=== PATIENT | female | born 1950 | race Caucasian/White ===

== ENCOUNTER 2025-01-03 18:02 | Inpatient (IN) | payer MEDICARE, SELFPAY ==
--- NOTE | ~2025-01-03 | CT_ITS ---
EXAMINATION: CT chest, abdomen and pelvis without contrast: DATE: 01/03/2025. INDICATION: Leukocytosis. Abnormal chest x-ray with opacity of left lower lung field. TECHNIQUE: CT was performed without contrast and multiplanar reconstruction were obtained. Radiation dose 844 MG Y C.M. COMPARISON: Chest x-ray dated 01/03/2025. FINDINGS: Cardiomegaly is noted with postoperative changes of aortic endograft. No focal abnormalities of the right lung. Consolidation of the left lower lobe is noted with volume loss. Major left lower bronchi are patent. Air bronchogram is present through consolidation. Minimal left pleural effusion. No pericardial effusion. Below the diaphragm, no focal lesions of the liver and spleen. Gallbladder shows no acute findings. Pancreas is atrophic. Multiple bilateral nonobstructing renal calculi. No ureteric calculi are obstruction are seen. No bladder calculus. Significant multilevel degenerative disc changes of lumbar spine. IMPRESSION: 1. Limited noncontrast CT, not optimal to evaluate neoplasms, vascular structures and solid viscera. 2. Significant consolidation and loss of volume of left lower lobe. Air bronchogram is present through the consolidation of left lower lobe. Findings are most likely due to persistent pneumonia of left lower lobe. Clinical and lab follow-up are needed along with chest x-ray follow-up to ensure complete resolution of the pneumonia. 3. Bilateral nonobstructing renal calculi. 4. Degenerative disc changes of thoracolumbar discs. Reviewed, dictated and finalized at location T. GER SOUND IMPRESSION: 1. Limited noncontrast CT, not optimal to evaluate neoplasms, vascular structur es and solid viscera. 2. Significant consolidation and loss of volume of left lower lobe. Air broncho gram is present through the consolidation of left lower lobe. Findings are most likely due to persistent pneumonia of left lower lobe. Clinical and lab follow -up are needed along with chest x-ray follow-up to ensure complete resolution o f the pneumonia. 3. Bilateral nonobstructing renal calculi. 4. Degenerative disc changes of thoracolumbar discs.
--- NOTE | ~2025-01-03 | XR_ITS ---
EXAMINATION: XR chest 2V DATE: 01/03/2025 18:59 INDICATION: Fever and cough TECHNIQUE: Frontal and lateral views of the chest were obtained. COMPARISON: None. FINDINGS: Heart size is mildly enlarged. Atherosclerotic aorta. Postoperative changes of aortic endograft. Right lung is clear. Significant consolidation and partial atelectasis of left lower lobe. Possible pneumonia. Aspiration or obstruction by tumor cannot be ruled out. IMPRESSION: 1. Cardiomegaly, atherosclerotic aorta and aortic graft placement. 2. Significant consolidation and loss of volume due to atelectasis of left lower lobe. Possible changes of pneumonia. However, obstruction by tumor or foreign body aspiration not ruled out. Radiographic follow-up is needed and if necessary CT follow-up can be obtained. Reviewed, dictated and finalized at location T. S SAFETY ENGINEER IMPRESSION: 1. Cardiomegaly, atherosclerotic aorta and aortic graft placement. 2. Significant consolidation and loss of volume due to atelectasis of left lowe r lobe. Possible changes of pneumonia. However, obstruction by tumor or foreign body aspiration not ruled out. Radiographic follow-up is needed and if necessa ry CT follow-up can be obtained.
[2025-01-03 18:07] VITALS: BP 140/58; PULSE 108; RESP 16; TEMP 36.5; O2SAT 96
--- NOTE | 2025-01-03 18:31 | ED.NAVMDI ---
HPI - Nausea/Vomiting/Diarrhea General Chief complaint: Nausea/Vomiting/Diarrhea Stated complaint: hypotension Time Seen by Provider: 01/03/25 18:31 Focused HPI: This is a 74 year old female that presents to the ER for nausea and vomiting. Ongoing since yesterday. Reports associated fever, cough, fatigue. GENERAL: Ill-appearing, well-nourished, and in no acute distress. HEAD: Normocephalic, atraumatic. CHEST: Clear to auscultation. ?No respiratory distress. HEART: Regular rate and rhythm.? NEURO: ?Alert and oriented x3. Patient screened in triage and initial orders placed.? ?Additional care and disposition to be based upon?diagnostic testing and treatment. Related Data Home Medications ?Medication ?Instructions ?Recorded ?Confirmed ?Last Taken ?Type albuterol sulfate 90 mcg/actuation 1 puff inhalation Q6H PRN 01/04/25 01/04/25 01/01/25 History aerosol inhaler shortness of breath or wheezing allopurinol 100 mg tablet 100 mg PO DAILY 01/04/25 01/04/25 01/01/25 History benzonatate 200 mg capsule 200 mg PO TID PRN cough 01/04/25 01/04/25 01/01/25 History clopidogrel 75 mg tablet 75 mg PO DAILY 01/04/25 01/04/25 01/01/25 History dronedarone 400 mg tablet (Multaq) 400 mg PO BID 01/04/25 01/04/25 01/01/25 History fluticasone furoate 100 1 inh inhalation Q24H 01/04/25 01/04/25 01/01/25 History mcg/actuation blister powder for inhalation (Arnuity Ellipta) hydrocodone 5 mg-acetaminophen 325 1 tablet PO BID PRN pain 01/04/25 01/04/25 01/02/25 History mg tablet meloxicam 7.5 mg tablet 7.5 mg PO DAILY PRN Pain 01/04/25 01/04/25 Unknown History unrelieved by hydrocodone metoprolol succinate 25 mg 25 mg PO DAILY 01/04/25 01/04/25 01/01/25 History tablet,extended release 24 hr oxybutynin chloride 5 mg tablet 5 mg PO HS 01/04/25 01/04/25 01/01/25 History oxybutynin chloride 5 mg tablet 10 mg PO DAILY 01/04/25 01/04/25 01/01/25 History Allergies Allergy/AdvReac Type Severity Reaction Status Date / Time ciprofloxacin Allergy Mild Hives Verified 01/04/25 02:03 levofloxacin (From Levaquin) Allergy Mild Hives Verified 01/04/25 02:03 Penicillins Allergy Mild Hives Verified 01/04/25 02:03 meperidine (From Demerol) AdvReac Mild Nausea Verified 01/04/25 02:03 Review of Systems Review of Systems: All systems reviewed & are unremarkable except as noted in HPI and below PMFSH Past Medical History Medical History (Updated 01/04/25 @ 07:45 by Kenzie Shetty APRN) Atrial fibrillation Family History Family History (Updated 01/04/25 @ 02:06 by Bhavin Chen RN) Father Lung cancer Mother Narcolepsy Social History Social History Smoking status: Never smoker Second hand tobacco smoke exposure: Yes Alcohol intake: never Substance use type: marijuana Last use: 12/10/24 Lack of Transportation: No Lack of Food: Never True Current Housing: I Have Housing Concerned About Future Housing: No Difficulty Paying Gas/Electric Bills: No Difficulty Paying for Meds: No Currently Unemployed: No Education: Bachelor's Degree Difficulty w/ Childcare or Family Care: No Spiritual care concerns: No Course Vital Signs Vital signs: Vital Signs Temperature 97.7 F 01/03/25 18:07 Pulse Rate 108 H 01/03/25 18:07 Respiratory Rate 16 01/03/25 18:07 Blood Pressure 140/58 L 01/03/25 18:07 Pulse Oximetry 96 01/03/25 18:07 Oxygen Delivery Room Air 01/03/25 18:07 Temperature 97.7 F 01/05/25 14:00 Pulse Rate 94 01/05/25 17:11 Respiratory Rate 17 01/05/25 14:00 Blood Pressure 132/83 01/05/25 14:00 Pulse Oximetry 95 01/05/25 14:00 Oxygen Delivery Room Air 01/05/25 10:42 MDM - Nausea/Vomiting/Diarrhea Lab Data 01/05/25 04:18 01/05/25 04:18 Labs: Lab Results 1101/03/25 01/03/25 Range/Units 19:04 19:08 22:13 WBC 15.8 H (4.5-10.0) K/mm3 RBC 4.64 (4.2-5.4) M/mm3 Hgb 14.7 (12.0-15.0) g/dL Hct 43.6 (37.0-47.0) % MCV 94.0 (80-100) fl MCH 31.7 (26-34) pg MCHC 33.7 (32-36) g/dl RDW 15.4 H (11.5-14.5) % Plt Count 190 (150-375) k/mm3 MPV 11.9 H (7.4-10.4) fl Immature Gran % (Auto) 1.2 H (0-0.5) % Neut % (Auto) 87.8 H (45.5-73.1) % Lymph % (Auto) 5.0 L (18.3-44.2) % [place] % (Auto) 4.0 (2.6-8.5) % Eos % (Auto) 1.3 (0-4.4) % Baso % (Auto) 0.7 (0.2-1.2) % Lymph # (Auto) 0.79 L (0.9-3.2) K/mm3 [place] # (Auto) 0.6 (0.1-0.6) K/mm3 Eos # (Auto) 0.2 (0-0.3) K/mm3 Baso # (Auto) 0.1 (0.0-0.1) K/mm3 Abs Immat Gran (auto) 0.19 H (0.00-0.031) K/mm3 Absolute Neuts (auto) 13.9 H (1.3-6.7) K/mm3 Absolute Nucleated RBC 0.000 (0.0-0.012) K/mm3 Band Neutrophils % Not Reportable Nucleated RBC % 0.0 (0.0-0.2) % Platelet Estimate Adequate (Adequate) Anisocytosis 1+ Ovalocytes 1+ Schistocytes None seen Sodium 131 L (137-145) mmol/L Potassium 3.1 L (3.4-5.0) mmol/L Chloride 91 L (98-107) mmol/L Carbon Dioxide 27 (22-30) mmol/L Anion Gap 13 H (4-12) mmol/L BUN 40 H (7-17) mg/dL Creatinine 1.98 H (0.7-1.0) mg/dL Estim Creat Clear Calc Not Reportable Estimated GFR 25 L (59 - ) Glucose 159 H (65-110) mg/dL Lactic Acid 3.0 H (0.7-2.0) mmol/L Calcium 9.3 (8.4-10.2) mg/dL Total Bilirubin 1.8 H (0.2-1.3) mg/dL AST 34 (14-36) U/L ALT 22 (6-35) U/L Alkaline Phosphatase 80 (38-126) U/L Total Protein 7.6 (6.3-8.2) g/dL Albumin 4.3 (3.5-5.1) g/dL Lipase 20 L (23-300) U/L Urine Color Dark yellow (Yellow) Urine Appearance Turbid H (Clear) Urine pH 5.5 (5.0-9.0) Ur Specific [place] 1.023 (1.001-1.035) Urine Protein 2+ H (Negative) mg/dL Urine Glucose (UA) Negative (Negative) mg/dL Urine Ketones Trace H (Negative) mg/dL Ur Blood (Man) 3+ H (Negative) Urine Nitrate Negative (Negative) Urine Bilirubin 2+ H (Negative) Urine Urobilinogen 1.0 (<2.0) mg/dL Leukocyte Esterase Rfl 2+ H (Negative) ADRIANE/UL Urine RBC 11-20 H (0-2) /hpf Urine WBC 6-10 H (0-3) /hpf Ur Squamous Epith Cells Few (Few) /hpf Urine Bacteria 1+ (None) /hpf Urine Mucus Few H /lpf Influenza A (RT-PCR) Negative (Negative) Influenza B (RT-PCR) Negative (Negative) RSV (RT-PCR) Negative (Negative) SARS-CoV-2 RNA (RT-PCR) Negative (Negative) 01/04/25 Range/Units 01:17 WBC (4.5-10.0) K/mm3 RBC (4.2-5.4) M/mm3 Hgb (12.0-15.0) g/dL Hct (37.0-47.0) % MCV (80-100) fl MCH (26-34) pg MCHC (32-36) g/dl RDW (11.5-14.5) % Plt Count (150-375) k/mm3 MPV (7.4-10.4) fl Immature Gran % (Auto) (0-0.5) % Neut % (Auto) (45.5-73.1) % Lymph % (Auto) (18.3-44.2) % [place] % (Auto) (2.6-8.5) % Eos % (Auto) (0-4.4) % Baso % (Auto) (0.2-1.2) % Lymph # (Auto) (0.9-3.2) K/mm3 [place] # (Auto) (0.1-0.6) K/mm3 Eos # (Auto) (0-0.3) K/mm3 Baso # (Auto) (0.0-0.1) K/mm3 Abs Immat Gran (auto) (0.00-0.031) K/mm3 Absolute Neuts (auto) (1.3-6.7) K/mm3 Absolute Nucleated RBC (0.0-0.012) K/mm3 Band Neutrophils % Nucleated RBC % (0.0-0.2) % Platelet Estimate (Adequate) Anisocytosis Ovalocytes Schistocytes Sodium (137-145) mmol/L Potassium (3.4-5.0) mmol/L Chloride (98-107) mmol/L Carbon Dioxide (22-30) mmol/L Anion Gap (4-12) mmol/L BUN (7-17) mg/dL Creatinine (0.7-1.0) mg/dL Estim Creat Clear Calc Estimated GFR (59 - ) Glucose (65-110) mg/dL Lactic Acid 1.9 (0.7-2.0) mmol/L Calcium (8.4-10.2) mg/dL Total Bilirubin (0.2-1.3) mg/dL AST (14-36) U/L ALT (6-35) U/L Alkaline Phosphatase (38-126) U/L Total Protein (6.3-8.2) g/dL Albumin (3.5-5.1) g/dL Lipase (23-300) U/L Urine Color (Yellow) Urine Appearance (Clear) Urine pH (5.0-9.0) Ur Specific [place] (1.001-1.035) Urine Protein (Negative) mg/dL Urine Glucose (UA) (Negative) mg/dL Urine Ketones (Negative) mg/dL Ur Blood (Man) (Negative) Urine Nitrate (Negative) Urine Bilirubin (Negative) Urine Urobilinogen (<2.0) mg/dL Leukocyte Esterase Rfl (Negative) ADRIANE/UL Urine RBC (0-2) /hpf Urine WBC (0-3) /hpf Ur Squamous Epith Cells (Few) /hpf Urine Bacteria (None) /hpf Urine Mucus /lpf Influenza A (RT-PCR) (Negative) Influenza B (RT-PCR) (Negative) RSV (RT-PCR) (Negative) SARS-CoV-2 RNA (RT-PCR) (Negative) Discharge Plan Discharge Clinical Impression: Community acquired pneumonia, Sepsis, Dehydration, Hypokalemia Patient Disposition: Still a Patient Condition: Stable
[2025-01-03 19:23] LABS: Hematocrit 43.6 % (37.0-47.0); Hemoglobin 14.7 g/dL (12.0-15.0); Immature Granulocyte Percent A 1.2 % (0-0.5); Lymphocytes Absolute Auto 0.79 K/mm3 (0.9-3.2); Mean Corpuscular HGB Conc 33.7 g/dl (32-36); Mean Corpuscular Hemoglobin 31.7 pg (26-34); Mean Corpuscular Volume 94.0 fl (80-100); Nucleated Red Blood Cells Absolute Auto 0.000 K/mm3 (0.0-0.012); Nucleated Red Blood Cells Perc 0.0 % (0.0-0.2); Platelet Count Result 190 k/mm3 (150-375); Red Blood Count 4.64 M/mm3 (4.2-5.4); White Blood Count 15.8 K/mm3 (4.5-10.0)
[2025-01-03 19:43] LABS: Alanine Aminotransferase 22 U/L (6-35); Albumin Level 4.3 g/dL (3.5-5.1); Alkaline Phosphatase 80 U/L (38-126); Anion Gap 13 mmol/L (4-12); Aspartate Amino Transferase 34 U/L (14-36); Bilirubin,Total 1.8 mg/dL (0.2-1.3); Blood Urea Nitrogen 40 mg/dL (7-17); Calcium 9.3 mg/dL (8.4-10.2); Carbon Dioxide 27 mmol/L (22-30); Chloride 91 mmol/L (98-107); Estimated Glomerular Filt Rate 25; Glucose 159 mg/dL (65-110); Lipase 20 U/L (23-300); Potassium 3.1 mmol/L (3.4-5.0); Sodium 131 mmol/L (137-145); Total Protein 7.6 g/dL (6.3-8.2)
[2025-01-03 19:46] LABS: Anisocytosis 1+; Ovalocytes 1+; Schistocytes None Seen
[2025-01-03 19:58] LABS: Influenza A QL RT-PCR Negative (Negative); Influenza B QL RT-PCR Negative (Negative); RSV RNA, RT-PCR Negative (Negative); SARS-CoV-2 RNA PCR Negative (Negative)
[2025-01-03 20:11] LABS: Add Urine Microscopic? YES; Appearance Urine Turbid (Clear); Glucose Urine UA Negative (Negative); Leukocyte Esterase Ur 2+ LEU/UL (Negative); Nitrate Urine Negative (Negative); Specific Grav Ur 1.023 (1.001-1.035)
[2025-01-03 20:31] VITALS: BP 117/70; PULSE 78; RESP 16; O2SAT 93
--- NOTE | 2025-01-03 20:56 | ED.WEAKNESS ---
HPI - Weakness General Chief complaint: Nausea/Vomiting/Diarrhea Stated complaint: hypotension Time Seen by Provider: 01/03/25 18:31 History of Present Illness HPI Narrative: 74-year-old female with history of hypertension, chronic lung disease, aortic valve replacement, aortic graft replacement. Patient presents to the emergency department today from urgent care as she was feeling generalized weakness, nonproductive cough, short of breath and nauseous. She is visiting family members from out of town. She gets her care in [place]. Patient was feeling too weak and barely able to ambulate secondary to malaise, weakness and feeling fever and chills throughout the weekend. Reported some nausea and vomiting but denies any abdominal discomfort or chest pain. Was otherwise in her normal state of health. States her fever broke before she arrived to the ER. Denies any urinary complaints. No headache or vision changes. No falls. 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 Related Data Home Medications ?Medication ?Instructions ?Recorded ?Confirmed ?Last Taken ?Type albuterol sulfate 90 mcg/actuation 1 puff inhalation Q6H PRN 01/04/25 01/04/25 01/01/25 History aerosol inhaler shortness of breath or wheezing allopurinol 100 mg tablet 100 mg PO DAILY 01/04/25 01/04/25 01/01/25 History benzonatate 200 mg capsule 200 mg PO TID PRN cough 01/04/25 01/04/25 01/01/25 History clopidogrel 75 mg tablet 75 mg PO DAILY 01/04/25 01/04/25 01/01/25 History dronedarone 400 mg tablet (Multaq) 400 mg PO BID 01/04/25 01/04/25 01/01/25 History fluticasone furoate 100 1 inh inhalation Q24H 01/04/25 01/04/25 01/01/25 History mcg/actuation blister powder for inhalation (Arnuity Ellipta) hydrocodone 5 mg-acetaminophen 325 1 tablet PO BID PRN pain 01/04/25 01/04/25 01/02/25 History mg tablet meloxicam 7.5 mg tablet 7.5 mg PO DAILY PRN Pain 01/04/25 01/04/25 Unknown History unrelieved by hydrocodone metoprolol succinate 25 mg 25 mg PO DAILY 01/04/25 01/04/25 01/01/25 History tablet,extended release 24 hr oxybutynin chloride 5 mg tablet 5 mg PO HS 01/04/25 01/04/25 01/01/25 History oxybutynin chloride 5 mg tablet 10 mg PO DAILY 01/04/25 01/04/25 01/01/25 History Allergies Allergy/AdvReac Type Severity Reaction Status Date / Time ciprofloxacin Allergy Mild Hives Verified 01/04/25 02:03 levofloxacin (From Levaquin) Allergy Mild Hives Verified 01/04/25 02:03 Penicillins Allergy Mild Hives Verified 01/04/25 02:03 meperidine (From Demerol) AdvReac Mild Nausea Verified 01/04/25 02:03 Review of Systems Review of Systems: As reviewed above in HPI All systems reviewed & are unremarkable except as noted in HPI and below PMFSH Family History Family History (Updated 01/04/25 @ 02:06 by Bhavin Chen RN) Father Lung cancer Mother Narcolepsy Social History Social History Smoking status: Never smoker Second hand tobacco smoke exposure: Yes Alcohol intake: never Substance use type: marijuana Last use: 12/10/24 Lack of Transportation: No Lack of Food: Never True Current Housing: I Have Housing Concerned About Future Housing: No Difficulty Paying Gas/Electric Bills: No Difficulty Paying for Meds: No Currently Unemployed: No Education: Bachelor's Degree Difficulty w/ Childcare or Family Care: No Spiritual care concerns: No Exam Narrative: GENERAL: Ill-appearing but not any acute physical or respiratory distress. HEAD: [Normocephalic, atraumatic.] EYES: [PERRLA and EOMI.] ENT: Nares clear, no rhinorrhea or epistaxis. Mucous membranes moist. NECK: Supple. CHEST: Asymmetric coarse breath sounds worse on the left side, no wheezing or obvious rales. HEART: [Regular rate and rhythm]. No murmur heard. [Normal peripheral pulses.] ABDOMEN: [Soft, nondistended], [nontender], [No rigidity or guarding] EXTREMITIES: Normal range of motion. [No edema.] SKIN: Warm, dry, no rash. NEURO: [No focal deficits]. Alert and oriented [x3.] PSYCH: [Normal mood and affect.] Course Vital Signs Vital signs: Vital Signs Temperature 36.5 C 01/03/25 18:07 Pulse Rate 108 H 01/03/25 18:07 Respiratory Rate 16 01/03/25 18:07 Blood Pressure 140/58 L 01/03/25 18:07 Pulse Oximetry 96 01/03/25 18:07 Oxygen Delivery Room Air 01/03/25 18:07 Temperature 36.6 C 01/04/25 01:15 Pulse Rate 78 01/04/25 01:15 Respiratory Rate 18 01/04/25 01:15 Blood Pressure 135/59 L 01/04/25 01:15 Pulse Oximetry 95 01/04/25 01:15 Oxygen Delivery Room Air 01/03/25 18:07 MDM - Weakness MDM Narrative Medical decision making narrative: 74-year-old female with history of hypertension, chronic lung disease, aortic valve replacement, aortic graft replacement. Patient presents to the emergency department today from urgent care as she was feeling generalized weakness, nonproductive cough, short of breath and nauseous. She is visiting family members from out of town. She gets her care in [place]. Patient was feeling too weak and barely able to ambulate secondary to malaise, weakness and feeling fever and chills throughout the weekend. Reported some nausea and vomiting but denies any abdominal discomfort or chest pain. Was otherwise in her normal state of health. States her fever broke before she arrived to the ER. Denies any urinary complaints. No headache or vision changes. No falls. 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 Patient coughing throughout the examination but not productive. She has asymmetric coarse breath sounds worse on the left side. She is tachycardic with a pulse of 108. No fever here but she states her fever broke before she arrived after going to urgent care. She tested negative for COVID, flu, RSV twice this weekend. Blood pressure mildly elevated but not significant. No fever or hypoxemia right now. No tachypnea. Suspicion for pneumonia versus upper respiratory infection versus viral syndrome. Laboratory studies EKG, chest x-ray ordered. Chest x-ray shows potential pneumonia versus obstructive process such as a mass. She does have an elevated white count combined with her tachycardia and subjective fever raises suspicion for SIRS criteria and sepsis. Lactic acid and blood cultures ordered. She is decreased kidney function with unknown baseline. Provided fluid boluses she does appear slightly dry. CT scans of the chest abdomen pelvis without contrast obtained for further evaluation at this time. Lab showed leukocytosis of 15.8, lactic acid 3.0. Pulse of 108. Hypokalemia with chronic kidney disease versus CIARAN. Patient given fluids and potassium replenishment. 30 cc/kg fluid bolus initiated. Already received antibiotics. CT scan without contrast secondary to kidney issues was limited but does show considerations for persistent pneumonia left lower lobe. Nonobstructing renal calculi. Spoke to the hospitalist Dr. Boucher who accepted the patient to a telemetry monitored bed at this time for continued care. Spoke to the family and patient were comfortable with admission. Repeat vital signs improved after fluids and antibiotics. Medical Records Attestation: I reviewed the patient's medical records. Lab Data Attestation: I reviewed the patient's lab results. 01/03/25 19:04 01/03/25 19:04 Labs: Lab Results 01/03/25 01/03/25 01/03/25 Range/Units 19:04 19:08 22:13 WBC 15.8 H (4.5-10.0) K/mm3 RBC 4.64 (4.2-5.4) M/mm3 Hgb 14.7 (12.0-15.0) g/dL Hct 43.6 (37.0-47.0) % MCV 94.0 (80-100) fl MCH 31.7 (26-34) pg MCHC 33.7 (32-36) g/dl RDW 15.4 H (11.5-14.5) % Plt Count 190 (150-375) k/mm3 MPV 11.9 H (7.4-10.4) fl Immature Gran % (Auto) 1.2 H (0-0.5) % Neut % (Auto) 87.8 H (45.5-73.1) % Lymph % (Auto) 5.0 L (18.3-44.2) % [place] % (Auto) 4.0 (2.6-8.5) % Eos % (Auto) 1.3 (0-4.4) % Baso % (Auto) 0.7 (0.2-1.2) % Lymph # (Auto) 0.79 L (0.9-3.2) K/mm3 [place] # (Auto) 0.6 (0.1-0.6) K/mm3 Eos # (Auto) 0.2 (0-0.3) K/mm3 Baso # (Auto) 0.1 (0.0-0.1) K/mm3 Abs Immat Gran (auto) 0.19 H (0.00-0.031) K/mm3 Absolute Neuts (auto) 13.9 H (1.3-6.7) K/mm3 Absolute Nucleated RBC 0.000 (0.0-0.012) K/mm3 Band Neutrophils % Not Reportable Nucleated RBC % 0.0 (0.0-0.2) % Platelet Estimate Adequate (Adequate) Anisocytosis 1+ Ovalocytes 1+ Schistocytes None seen Sodium 131 L (137-145) mmol/L Potassium 3.1 L (3.4-5.0) mmol/L Chloride 91 L (98-107) mmol/L Carbon Dioxide 27 (22-30) mmol/L Anion Gap 13 H (4-12) mmol/L BUN 40 H (7-17) mg/dL Creatinine 1.98 H (0.7-1.0) mg/dL Estim Creat Clear Calc Not Reportable Estimated GFR 25 L (59 - ) Glucose 159 H (65-110) mg/dL Lactic Acid 3.0 H (0.7-2.0) mmol/L Calcium 9.3 (8.4-10.2) mg/dL Total Bilirubin 1.8 H (0.2-1.3) mg/dL AST 34 (14-36) U/L ALT 22 (6-35) U/L Alkaline Phosphatase 80 (38-126) U/L Total Protein 7.6 (6.3-8.2) g/dL Albumin 4.3 (3.5-5.1) g/dL Lipase 20 L (23-300) U/L Urine Color Dark yellow (Yellow) Urine Appearance Turbid H (Clear) Urine pH 5.5 (5.0-9.0) Ur Specific [place] 1.023 (1.001-1.035) Urine Protein 2+ H (Negative) mg/dL Urine Glucose (UA) Negative (Negative) mg/dL Urine Ketones Trace H (Negative) mg/dL Ur Blood (Man) 3+ H (Negative) Urine Nitrate Negative (Negative) Urine Bilirubin 2+ H (Negative) Urine Urobilinogen 1.0 (<2.0) mg/dL Leukocyte Esterase Rfl 2+ H (Negative) ADRIANE/UL Urine RBC 11-20 H (0-2) /hpf Urine WBC 6-10 H (0-3) /hpf Ur Squamous Epith Cells Few (Few) /hpf Urine Bacteria 1+ (None) /hpf Urine Mucus Few H /lpf Influenza A (RT-PCR) Negative (Negative) Influenza B (RT-PCR) Negative (Negative) RSV (RT-PCR) Negative (Negative) SARS-CoV-2 RNA (RT-PCR) Negative (Negative) Imaging Data Attestation: I personally reviewed and interpreted this imaging study as follows: My impression: Impressions Chest X-Ray 01/03/25 19:01 IMPRESSION: 1. Cardiomegaly, atherosclerotic aorta and aortic graft placement. 2. Significant consolidation and loss of volume due to atelectasis of left lower lobe. Possible changes of pneumonia. However, obstruction by tumor or foreign body aspiration not ruled out. Radiographic follow-up is needed and if necessary CT follow-up can be obtained. Chest/Abdomen/Pelvis CT 01/03/25 21:22 IMPRESSION: 1. Limited noncontrast CT, not optimal to evaluate neoplasms, vascular structures and solid viscera. 2. Significant consolidation and loss of volume of left lower lobe. Air bronchogram is present through the consolidation of left lower lobe. Findings are most likely due to persistent pneumonia of left lower lobe. Clinical and lab follow-up are needed along with chest x-ray follow-up to ensure complete resolution of the pneumonia. 3. Bilateral nonobstructing renal calculi. 4. Degenerative disc changes of thoracolumbar discs. Critical Care Time Critical Care Time Critical Care Time: Yes Total Critical Care Time: 35 Discharge Plan Discharge Clinical Impression: Community acquired pneumonia, Sepsis, Dehydration, Hypokalemia Patient Disposition: Still a Patient Condition: Stable
--- NOTE | 2025-01-03 21:00 | ECG_ITS ---
Test Date: 2025-01-03 21:40:14 Measurements Intervals [place] Rate: 101 P: 0 MN: 0 QRS: 50 QRSD: 115 T: -10 QT: 370 QTc: 480 Interpretive Statements ATRIAL FIBRILLATION WITH RAPID VENTRICULAR RESPONSE NONSPECIFIC T-WAVE ABNORMALITY ABNORMAL RHYTHM ECG No previous ECG available for comparison Electronically Signed On 01-04-2025 07:34:14 VIRTUAL CUSTOMER ASSISTANT by Gian Vidal M.D.
[2025-01-03 21:20] VITALS: BP 126/91; PULSE 70; RESP 14; O2SAT 96
[2025-01-03] MEDS: AZITHROMYCIN IV 500 MG in SODIUM CHLORIDE 0.9% IV 250 ML IVPB (23:08)
[2025-01-03] MEDS: LACTATED RINGERS 1,000 ML 999 ML IV CONT (23:08)
[2025-01-04] VITALS (15 sets, daily range): BP systolic 112–151; BP diastolic 55–93; PULSE 70–114; RESP 16–20; TEMP 36.4–36.8; O2SAT 92–98; BMI 33.3
[2025-01-04] MEDS: HYDROcodone/acetaminophen (*CRX) 5-325 MG TABLET 1 TAB PO ×2 (00:03→14:33)
[2025-01-04] MEDS: cefTRIAXone 2 GM in SODIUM CHLORIDE 0.9% IV 100 ML 200 ML IVPB (00:11)
--- NOTE | 2025-01-04 00:14 | WPCEDHO ---
ED Hand Off Checklist All vitals saved: yes IV Site doc yesumented: All med administrations documented: no. Pharmacy is fixing some issues with the medications and ER tube station is down and meds are slow to come to ER Triage Note Triage Note PT TO ED FOR EVAL OF N/V/D SINCE 01/03/25 18:07 THIS WEEKEND. NO OTHER FAMILY MEMBERS ILL. DENIES ANY ABD PAIN . FEELS CHILLED. WAS AT [facility] AND [facility] NEGATIVE Allergies ciprofloxacin Allergy (Mild, Verified 01/03/25 18:05) Hives levofloxacin (From Levaquin) Allergy (Mild, Verified 01/03/25 18:05) Hives Penicillins Allergy (Mild, Verified 01/03/25 18:05) Hives meperidine (From Demerol) Adverse Reaction (Mild, Verified 01/03/25 18:05) Nausea Administered/Completed Medications Discontinued Medications Hydrocodone Bitart/Acetaminophen (Hydrocodone/Acetaminophen (*Crx) 5-325 Mg Tablet) 1 tab PO ONCE STA Stop: 01/03/25 23:22 Last Admin: 01/04/25 00:03 Dose: 1 tab Documented By: KAY Lactated Ringer's (Lr - Lactated Ringers Iv) 1,000 mls @ 999 mls/hr IV CONT .Q1H1M STA Stop: 01/03/25 21:39 Last Infusion: 01/04/25 00:10 Dose: Infused Documented By: Admin: 01/03/25 23:08 Dose: 999 mls/hr Documented By: KAY Ceftriaxone Sodium 2 gm/ (Sodium Chloride) 100 mls @ 200 mls/hr IVPB ONCE STA Stop: 01/03/25 21:08 Last Admin: 01/04/25 00:11 Dose: 200 mls/hr Documented By: KAY Azithromycin 500 mg/ Sodium (Chloride) 250 mls @ 250 mls/hr IVPB ONCE ONE Stop: 01/03/25 21:38 Last Infusion: 01/04/25 00:10 Dose: Infused Documented By: Admin: 01/03/25 23:08 Dose: 250 mls/hr Documented By: KAY Ondansetron HCl (Ondansetron Inj 4 Mg/2 Ml Vial) 4 mg IV PUSH ONCE STA Stop: 01/03/25 18:35 Last Admin: 01/03/25 23:01 Dose: Not Given Documented By: KAY Non-Admin Reason: Patient Refuses Interventions/Assessments IV / Saline Lock, Insert Start: 01/03/25 18:32 Freq: STAT Status: Active Protocol: Document 01/03/25 20:12 SAK (Rec: 01/03/25 20:12 SAK [id number]) IV Assessment Peripheral Access Left Antecubital IV Catheter Access Initiated IV Insertion Date 01/03/25 IV Insertion Time 20:12 Catheter Gauge 20 IV Insertion 1 Attempts Ultrasound Used for No Placement IV Site Assessment WNL IV Care and Access Locked Maintenance PA: Gastrointestinal Assessment Start: 01/03/25 18:06 Freq: Status: Active Protocol: Document 01/03/25 20:13 SAK (Rec: 01/03/25 20:14 SAK [id number]) GI Assessment Gastrointestinal Nausea Symptoms Description Soft,Non-Tender All Quadrants Bowel Sounds Active Pattern Normal Nausea/Vomiting Assessment Nausea Frequency Intermittent Emesis Frequency None Last Vital Signs Temperature 97.7 F 01/03/25 18:07 Pulse Rate 90 01/04/25 00:01 Respiratory Rate 16 01/04/25 00:01 Pulse Oximetry 93 01/04/25 00:01 Blood Pressure 120/93 H 01/04/25 00:01 Blood Pressure Mean 102 01/04/25 00:01 Blood Pressure Position Supine 01/04/25 00:01 Oxygen Delivery Room Air 01/03/25 18:07 Weight 77 kg 01/03/25 18:07 Last Result - Abnormals Only WBC 15.8 K/mm3 (4.5-10.0) H 01/03/25 19:04 RDW 15.4 % (11.5-14.5) H 01/03/25 19:04 MPV 11.9 fl (7.4-10.4) H 01/03/25 19:04 Immature Gran % (Auto) 1.2 % (0-0.5) H 01/03/25 19:04 Neut % (Auto) 87.8 % (45.5-73.1) H 01/03/25 19:04 Lymph % (Auto) 5.0 % (18.3-44.2) L 01/03/25 19:04 Lymph # (Auto) 0.79 K/mm3 (0.9-3.2) L 01/03/25 19:04 Abs Immat Gran (auto) 0.19 K/mm3 (0.00-0.031) H 01/03/25 19:04 Absolute Neuts (auto) 13.9 K/mm3 (1.3-6.7) H 01/03/25 19:04 Sodium 131 mmol/L (137-145) L 01/03/25 19:04 Potassium 3.1 mmol/L (3.4-5.0) L 01/03/25 19:04 Chloride 91 mmol/L (98-107) L 01/03/25 19:04 Anion Gap 13 mmol/L (4-12) H 01/03/25 19:04 BUN 40 mg/dL (7-17) H 01/03/25 19:04 Creatinine 1.98 mg/dL (0.7-1.0) H 01/03/25 19:04 Estimated GFR 25 (59-) L 01/03/25 19:04 Glucose 159 mg/dL (65-110) H 01/03/25 19:04 Lactic Acid 3.0 mmol/L (0.7-2.0) H 01/03/25 22:13 Total Bilirubin 1.8 mg/dL (0.2-1.3) H 01/03/25 19:04 Lipase 20 U/L (23-300) L 01/03/25 19:04 Urine Appearance Turbid (Clear) H 01/03/25 19:08 Urine Protein 2+ mg/dL (Negative) H 01/03/25 19:08 Urine Ketones Trace mg/dL (Negative) H 01/03/25 19:08 Ur Blood (Man) 3+ (Negative) H 01/03/25 19:08 Urine Bilirubin 2+ (Negative) H 01/03/25 19:08 Leukocyte Esterase Rfl 2+ ADRIANE/UL (Negative) H 01/03/25 19:08 Urine RBC 11-20 /hpf (0-2) H 01/03/25 19:08 Urine WBC 6-10 /hpf (0-3) H 01/03/25 19:08 Urine Mucus Few /lpf H 01/03/25 19:08 Most Recent Suicide Severity Rating Suicide Severity Rating NO RISK INDICATED 01/03/25 18:07
[2025-01-04] MEDS: POTASSIUM CHLORIDE 20 MEQ ER TABLET 40 MEQ PO (01:15)
[2025-01-04] MEDS: LACTATED RINGERS 1,000 ML 999 ML IV CONT (01:15)
[2025-01-04] MEDS: LACTATED RINGERS 400 ML 999 ML IV CONT (01:16)
[2025-01-04] MEDS: SODIUM CHLORIDE 0.9% IV 1,000 ML 75 ML IV CONT ×2 (05:26→17:23)
--- NOTE | 2025-01-04 07:35 | PM.IMHP ---
H&P: HPI History of Present Illness Date/Time: 01/04/25 1214 Chief Complaint: Cough, N/V, weakness, fever Narrative: Pt lying in bed with S.O. at the bedside. Pt c/o continued lower back pain (chronic), weakness, and brown tinged productive cough that started Thursday. Pt with recent 11 hour car ride, she [place]. Pt states that she feels better than she did yesterday but would like to start her home pain meds for her back pain (has gotten multiple injections to the L-spine, last being in 10/2024). Denies any other issues. Review of Systems Review of Systems: All systems reviewed & are unremarkable except as noted in HPI and below PMFSH Past Medical History Medical History (Updated 01/04/25 @ 07:45 by Kenzie Shetty APRN) Atrial fibrillation Family History Family History (Updated 01/04/25 @ 02:06 by Bhavin Chen RN) Father Lung cancer Mother Narcolepsy Social History Social History Smoking status: Never smoker Second hand tobacco smoke exposure: Yes Alcohol intake: never Substance use type: marijuana Last use: 12/10/24 Lack of Transportation: No Lack of Food: Never True Current Housing: I Have Housing Concerned About Future Housing: No Difficulty Paying Gas/Electric Bills: No Difficulty Paying for Meds: No Currently Unemployed: No Education: Bachelor's Degree Difficulty w/ Childcare or Family Care: No Spiritual care concerns: No Meds Home Medications and Allergies Home Medications ?Medication ?Instructions ?Recorded ?Confirmed ?Type albuterol sulfate 90 mcg/actuation 1 puff inhalation Q6H PRN 01/04/25 01/04/25 History aerosol inhaler shortness of breath or wheezing allopurinol 100 mg tablet 100 mg PO DAILY 01/04/25 01/04/25 History benzonatate 200 mg capsule 200 mg PO TID PRN cough 01/04/25 01/04/25 History clopidogrel 75 mg tablet 75 mg PO DAILY 01/04/25 01/04/25 History dronedarone 400 mg tablet (Multaq) 400 mg PO BID 01/04/25 01/04/25 History fluticasone furoate 100 1 inh inhalation Q24H 01/04/25 01/04/25 History mcg/actuation blister powder for inhalation (Arnuity Ellipta) hydrocodone 5 mg-acetaminophen 325 1 tablet PO BID PRN pain 01/04/25 01/04/25 History mg tablet meloxicam 7.5 mg tablet 7.5 mg PO DAILY PRN Pain 01/04/25 01/04/25 History unrelieved by hydrocodone metoprolol succinate 25 mg 25 mg PO DAILY 01/04/25 01/04/25 History tablet,extended release 24 hr oxybutynin chloride 5 mg tablet 5 mg PO HS 01/04/25 01/04/25 History oxybutynin chloride 5 mg tablet 10 mg PO DAILY 01/04/25 01/04/25 History Allergies Allergy/AdvReac Type Severity Reaction Status Date / Time ciprofloxacin Allergy Mild Hives Verified 01/04/25 02:03 levofloxacin (From Levaquin) Allergy Mild Hives Verified 01/04/25 02:03 Penicillins Allergy Mild Hives Verified 01/04/25 02:03 meperidine (From Demerol) AdvReac Mild Nausea Verified 01/04/25 02:03 Vital Signs Vital Signs - 24 hr 01/03/25 18:07 01/03/25 20:31 01/03/25 21:20 Temperature 97.7 F Pulse Rate 108 H 78 70 Respiratory Rate 16 16 14 Blood Pressure 140/58 L 117/70 126/91 H Pulse Oximetry 96 93 96 Oxygen Delivery Room Air 01/04/25 00:01 01/04/25 01:00 01/04/25 01:15 Temperature 98.3 F 97.9 F Pulse Rate 90 106 H 78 Respiratory Rate 16 17 18 Blood Pressure 120/93 H 126/67 135/59 L Pulse Oximetry 93 95 95 Oxygen Delivery 01/04/25 02:23 01/04/25 03:34 01/04/25 04:00 Temperature 97.6 F Pulse Rate 95 103 H Respiratory Rate 20 Blood Pressure 112/55 L Pulse Oximetry 92 Oxygen Delivery Room Air Exam Narrative: Elderly Const: General: no acute distress and uncomfortable HENMT: Face/Nose/Sinus: Normal nares present Other: tacky mucous membranes Eyes: General: appearance normal, both eyes and all related structures Sclera: sclerae normal Pupils: Equal, round and reactive pupils present Neck: Neck: supple Carotids: no bruits Resp: Effort & Inspection: normal respiratory effort Auscultation: crackles on the left in the lower lung munoz, wheezes expiratory wheezes and left lower and diminished lung sounds (throughout) Cardio: Rate: regular rate Rhythm: regular rhythm GI: Inspection: non-distended GI Palp: No Tenderness to palpation present (GI) Auscultation: normal bowel sounds Back/Spine/Pelvis: Other: TTP lumbar spine, paraspinal bilaterally Skin: General skin exam: normal color and no rashes or lesions noted Neuro: Speech: normal speech Motor exam (neuro): 5/5 motor strength present throughout and Normal motor muscle tone present throughout Sensory Exam: normal sensation Extrem: General: normal to inspection and normal exam except as noted Psych: Mental Status: mental status grossly normal Affect: normal affect H&P: Results Labs Labs: Short CBC 01/03/25 Range/Units 19:04 WBC 15.8 H (4.5-10.0) K/mm3 Hgb 14.7 (12.0-15.0) g/dL Hct 43.6 (37.0-47.0) % Plt Count 190 (150-375) k/mm3 BMP 01/03/25 19:04 Sodium 131 L Potassium 3.1 L Chloride 91 L Carbon Dioxide 27 BUN 40 H Creatinine 1.98 H Glucose 159 H Calcium 9.3 Liver Function 01/03/25 Range/Units 19:04 Total Bilirubin 1.8 H (0.2-1.3) mg/dL AST 34 (14-36) U/L ALT 22 (6-35) U/L Alkaline Phosphatase 80 (38-126) U/L Albumin 4.3 (3.5-5.1) g/dL Urine 01/03/25 Range/Units 19:08 Urine Color Dark yellow (Yellow) Urine Appearance Turbid H (Clear) Urine pH 5.5 (5.0-9.0) Ur Specific [place] 1.023 (1.001-1.035) Urine Protein 2+ H (Negative) mg/dL Urine Glucose (UA) Negative (Negative) mg/dL Assessment and Plan Assessment and plan (1) Community acquired pneumonia: Code(s): J18.9 - Pneumonia, unspecified organism Status: Acute Assessment and Plan: Per CXR & CT WBC elevated Abx started in ED: Maria Elena Ordered sputum culture today, pending (2) Sepsis: Code(s): A41.9 - Sepsis, unspecified organism Status: Acute Assessment and Plan: SIRS vs sepsis WBC downtrending VSS Pending UC and BC (3) Dehydration: Code(s): E86.0 - Dehydration Status: Acute Assessment and Plan: IVF bolus initiated in ED -Continue NS 75ml/hr (4) Hypokalemia: Code(s): E87.6 - Hypokalemia Status: Acute Assessment and Plan: 3.1 in the ED, repleted there 3.7 with recheck 01/04, continue with daily labs (5) Renal calculi: Code(s): N20.0 - Calculus of kidney Status: Acute Assessment and Plan: Per CT, chronic, states that she has had a total of 8 in the past and she can tell when present -Denies CVA pain or urinary sx -Home med oxybutynin continued (6) Atrial fibrillation: Code(s): I48.91 - Unspecified atrial fibrillation Status: Acute Assessment and Plan: Tele, EKG in ED 480 QTc -Denies CP, SOB, palpitations -Continue home meds: Plavix, dronedarone Plan Continue with course of abx IV abx for sepsis/UTI Quality VTE Prophylaxis VTE prophylaxis: mechanical ordered and pharmacologic ordered Hospitalist [facility] Advance Care Plan I have confirmed that the patient's Advanced Care Plan is present, code status is documented, or surrogate decision maker is listed in patient medical record.: Yes The patient's Advanced Care plan is not present because:: Patient doesn't want to name surrogate or provider advance care plan
[2025-01-04] MEDS: CLOPIDOGREL BISULFATE 75 MG TABLET PO (08:34)
[2025-01-04] MEDS: DRONEDARONE HCL 400 MG TABLET PO ×2 (08:34→17:21)
[2025-01-04] MEDS: METOPROLOL SUCCINATE EXT REL 25 MG TABCR PO (08:35)
[2025-01-04 10:09] LABS: Hematocrit 35.9 % (37.0-47.0); Hemoglobin 12.0 g/dL (12.0-15.0); Mean Corpuscular HGB Conc 33.4 g/dl (32-36); Mean Corpuscular Hemoglobin 31.7 pg (26-34); Mean Corpuscular Volume 95.0 fl (80-100); Platelet Count Result 136 k/mm3 (150-375); Red Blood Count 3.78 M/mm3 (4.2-5.4); White Blood Count 13.7 K/mm3 (4.5-10.0)
[2025-01-04 10:33] LABS: Alanine Aminotransferase 16 U/L (6-35); Albumin Level 3.2 g/dL (3.5-5.1); Alkaline Phosphatase 74 U/L (38-126); Anion Gap 5 mmol/L (4-12); Aspartate Amino Transferase 25 U/L (14-36); Bilirubin,Total 0.9 mg/dL (0.2-1.3); Blood Urea Nitrogen 42 mg/dL (7-17); Calcium 8.9 mg/dL (8.4-10.2); Carbon Dioxide 28 mmol/L (22-30); Chloride 99 mmol/L (98-107); Estimated Glomerular Filt Rate 39; Glucose 104 mg/dL (65-110); Potassium 3.7 mmol/L (3.4-5.0); Sodium 132 mmol/L (137-145); Total Protein 5.8 g/dL (6.3-8.2)
[2025-01-04] MEDS: cefTRIAXone 1 GM in SODIUM CHLORIDE 0.9% IV 50 ML 100 ML IVPB (21:16)
[2025-01-04] MEDS: AZITHROMYCIN IV 500 MG in SODIUM CHLORIDE 0.9% IV 250 ML IVPB (21:52)
[2025-01-04] MEDS: BENZONATATE 100 MG CAPSULE 200 MG PO (22:41)
[2025-01-05] VITALS (13 sets, daily range): BP systolic 132–152; BP diastolic 79–87; PULSE 77–106; RESP 16–18; TEMP 36.5–37.4; O2SAT 95–98
[2025-01-05 04:35] LABS: Hematocrit 33.6 % (37.0-47.0); Hemoglobin 11.0 g/dL (12.0-15.0); Immature Granulocyte Percent A 0.5 % (0-0.5); Lymphocytes Absolute Auto 0.90 K/mm3 (0.9-3.2); Mean Corpuscular HGB Conc 32.7 g/dl (32-36); Mean Corpuscular Hemoglobin 32.1 pg (26-34); Mean Corpuscular Volume 98.0 fl (80-100); Nucleated Red Blood Cells Absolute Auto 0.000 K/mm3 (0.0-0.012); Nucleated Red Blood Cells Perc 0.0 % (0.0-0.2); Platelet Count Result 126 k/mm3 (150-375); Red Blood Count 3.43 M/mm3 (4.2-5.4); White Blood Count 12.0 K/mm3 (4.5-10.0)
[2025-01-05 05:06] LABS: Anisocytosis 1+; Burr Cells 1+; Schistocytes None Seen
--- NOTE | 2025-01-05 07:26 | PM.IMPN ---
Progress Note: A&P Assessment and Plan (1) Community acquired pneumonia: Code(s): J18.9 - Pneumonia, unspecified organism Status: Acute Assessment and Plan: Per CXR & CT WBC elevated, continuing to downtrend Abx started in ED: Shavonne & Rayne Sputum culture pending Reports today that she feels as if she has phlegm stuck in her chest that she cannot get out. D/C Tessalon Perles and started guaifenesin, will continue to monitor (2) Sepsis: Code(s): A41.9 - Sepsis, unspecified organism Status: Acute Assessment and Plan: SIRS vs sepsis WBC downtrending VSS Pending UC and BC (3) Dehydration: Code(s): E86.0 - Dehydration Status: Acute Assessment and Plan: IVF bolus initiated in ED -Continue NS 75ml/hr -Reports oral fluid intake WDL for her, moist mucus membranes (4) Hypokalemia: Code(s): E87.6 - Hypokalemia Status: Acute Assessment and Plan: 3.1 in the ED, repleted there 3.7 with recheck 01/04, continue with daily labs 3.3 with recheck 01/05. will replete via oral again. pt with decreased appetite. continue daily labs (5) Renal calculi: Code(s): N20.0 - Calculus of kidney Status: Acute Assessment and Plan: Per CT, chronic, states that she has had a total of 8 in the past and she can tell when present -Denies CVA pain or urinary sx -Home med oxybutynin continued (6) Atrial fibrillation: Code(s): I48.91 - Unspecified atrial fibrillation Status: Acute Assessment and Plan: Tele, EKG in ED 480 QTc -Denies CP, SOB, palpitations -Continue home meds: Plavix, dronedarone Plan Continue with course of abx IV abx for sepsis/UTI/PNA Time Spent With Patient Time: 35 Subjective Date/time seen: 01/05/25 1044 Interval history: Pt lying in bed in no distress upon entering her room. Pt states that she feels better than yesterday, but still feels SOB, has a productive cough, weakness, and no appetite (although reports fluid intake has been WDL for her). Pt states that she feels as if she has phlegm in her chest that she cannot seem to get up, will start guaifenesin today with d/c Edmar [place]. Denies CP or any other sx. Pt chronic pain is better managed today, she states that it has been flaring due to the hospital bed. Review of Systems Review of Systems: All systems reviewed & are unremarkable except as noted in HPI and below Exam Narrative: Elderly Const: General: no acute distress and uncomfortable HENMT: Face/Nose/Sinus: Normal nares present Mouth: Yes moist mucous membranes Eyes: General: appearance normal, both eyes and all related structures Sclera: sclerae normal Pupils: Equal, round and reactive pupils present Neck: Neck: supple Carotids: no bruits Resp: Effort & Inspection: normal respiratory effort Auscultation: diminished lung sounds (throughout) Cardio: Rate: regular rate Rhythm: abnormal rhythm irregularly irregular Other: TELE afib 89bpm GI: Inspection: non-distended Auscultation: normal bowel sounds Skin: General skin exam: normal color and no rashes or lesions noted Neuro: Cranial nerves: Yes Equal, round and reactive pupils present Speech: normal speech Motor exam (neuro): Normal motor muscle tone present throughout Sensory Exam: normal sensation Extrem: General: normal to inspection and normal exam except as noted Psych: Mental Status: mental status grossly normal Affect: normal affect Objective Data Vital Signs Vital Signs: Vital Signs - 24 hr 01/04/25 08:00 01/04/25 08:32 01/04/25 08:34 Temperature Pulse Rate 104 H 100 106 H Respiratory Rate Blood Pressure 151/85 H Pulse Oximetry 96 Oxygen Delivery 01/04/25 08:35 01/04/25 08:35 01/04/25 12:00 Temperature Pulse Rate 106 H 108 H Respiratory Rate Blood Pressure Pulse Oximetry Oxygen Delivery Room Air 01/04/25 14:00 01/04/25 16:00 01/04/25 17:21 Temperature 97.8 F Pulse Rate 70 112 H 114 H Respiratory Rate 18 Blood Pressure 148/74 H Pulse Oximetry 98 Oxygen Delivery 01/04/25 20:00 01/04/25 20:00 01/04/25 20:55 Temperature 97.8 F Pulse Rate 90 87 Respiratory Rate 16 Blood Pressure 131/75 Pulse Oximetry 95 Oxygen Delivery Room Air 01/05/25 00:00 01/05/25 04:00 01/05/25 04:51 Temperature 97.7 F Pulse Rate 106 H 80 89 Respiratory Rate 18 Blood Pressure 152/87 H Pulse Oximetry 98 Oxygen Delivery Intake/Output Intake/Output: Intake & Output 01/02/25 01/03/25 01/04/25 01/05/25 23:59 23:59 23:59 23:59 Intake Total 5521.6 Output Total 400 200 Balance 5121.6 -200 Meds/Results Medications: Active Medications Generic Name Dose Route Start Last Admin Trade Name Freq PRN Reason Stop Dose Admin Acetaminophen 650 mg 01/03/25 23:28 Acetaminophen 325 Mg Tablet PO Q4H PRN Mild Pain (1-3) or Fever Hydrocodone Bitart/Acetaminophen 1 tab 01/04/25 12:24 01/04/25 14:33 Hydrocodone/Acetaminophen (*Crx) 5-325 Mg Tablet PO 1 tab BID PRN Administration Pain Albuterol 1 puff 01/04/25 07:44 Albuterol Sulfate (*Sp) Aerosol 1 Puff INHALATION Q6H PRN Shortness Of Breath Or Wheezing Allopurinol 100 mg 01/04/25 09:00 01/04/25 08:35 Allopurinol 100 Mg Tablet PO 100 mg DAILY MISBAH Administration Benzonatate 200 mg 01/04/25 07:54 01/04/25 22:41 Benzonatate 100 Mg Capsule PO 200 mg TID PRN Administration cough Clopidogrel Bisulfate 75 mg 01/04/25 09:00 01/04/25 08:34 Clopidogrel Bisulfate 75 Mg Tablet PO 75 mg DAILY MISBAH Administration Dronedarone 400 mg 01/04/25 08:00 01/04/25 17:21 Dronedarone Hcl 400 Mg Tablet PO 400 mg BIDWM MISBAH Administration Enoxaparin Sodium 40 mg 01/05/25 09:00 Enoxaparin 40 Mg/0.4 Ml Syringe SUB-Q DAILY MISBAH Fluticasone Propionate 2 puff 01/04/25 08:00 01/04/25 20:44 Fluticasone Prop 110 Mcg Inhaler 12 Gm (*Sp) INHALATION Not Given Q12HRT MISBAH Sodium Chloride 1,000 mls @ 75 mls/hr 01/04/25 00:50 01/04/25 21:00 Normal Saline Iv IV CONT 75 mls/hr .[id number] MISBAH Infusion Ceftriaxone Sodium 1 gm/ 50 mls @ 100 mls/hr 01/04/25 21:00 01/04/25 21:46 Sodium Chloride IVPB 01/09/25 21:29 Infused Q24H MISBAH Infusion Azithromycin 500 mg/ Sodium 250 mls @ 250 mls/hr 01/04/25 21:00 01/04/25 22:52 Chloride IVPB 01/07/25 21:59 Infused Q24H MISBAH Infusion Metoprolol Succinate 25 mg 01/04/25 09:00 01/04/25 08:35 Metoprolol Succinate Ext Rel 25 Mg Tabcr PO 25 mg DAILY MISBAH Administration Oxybutynin Chloride 10 mg 01/04/25 09:00 01/04/25 08:35 Oxybutynin Chloride 5 Mg Tablet PO 10 mg DAILY MISBAH Administration Oxybutynin Chloride 5 mg 01/04/25 21:00 01/04/25 21:21 Oxybutynin Chloride 5 Mg Tablet PO 5 mg HS MISBAH Administration Trimethobenzamide HCl 200 mg 01/04/25 07:54 Trimethobenzamide Hcl 200 Mg/2 Ml Vial IM Q6H PRN Nausea And Vomiting Radiology Results: ITS Impressions Chest X-Ray 01/03/25 19:01 IMPRESSION: 1. Cardiomegaly, atherosclerotic aorta and aortic graft placement. 2. Significant consolidation and loss of volume due to atelectasis of left lower lobe. Possible changes of pneumonia. However, obstruction by tumor or foreign body aspiration not ruled out. Radiographic follow-up is needed and if necessary CT follow-up can be obtained. Chest/Abdomen/Pelvis CT 01/03/25 21:22 IMPRESSION: 1. Limited noncontrast CT, not optimal to evaluate neoplasms, vascular structures and solid viscera. 2. Significant consolidation and loss of volume of left lower lobe. Air bronchogram is present through the consolidation of left lower lobe. Findings are most likely due to persistent pneumonia of left lower lobe. Clinical and lab follow-up are needed along with chest x-ray follow-up to ensure complete resolution of the pneumonia. 3. Bilateral nonobstructing renal calculi. 4. Degenerative disc changes of thoracolumbar discs. Labs Labs: Laboratory Results - last 24 hr 01/04/25 01/05/25 10:01 04:18 WBC 13.7 H 12.0 H RBC 3.78 L 3.43 L Hgb 12.0 11.0 L Hct 35.9 L 33.6 L MCV 95.0 98.0 MCH 31.7 32.1 MCHC 33.4 32.7 RDW 15.1 H 15.4 H Plt Count 136 L 126 L MPV 12.2 H 12.5 H Immature Gran % (Auto) 0.5 Neut % (Auto) 86.0 H Lymph % (Auto) 7.5 L [place] % (Auto) 5.6 Eos % (Auto) 0.1 Baso % (Auto) 0.3 Lymph # (Auto) 0.90 [place] # (Auto) 0.7 H Eos # (Auto) 0.0 Baso # (Auto) 0.0 Abs Immat Gran (auto) 0.06 H Absolute Neuts (auto) 10.3 H Absolute Nucleated RBC 0.000 Band Neutrophils % Not Reportable Nucleated RBC % 0.0 Platelet Estimate Decreased Anisocytosis 1+ [place] Cells 1+ Schistocytes None seen Sodium 132 L Potassium 3.7 Chloride 99 Carbon Dioxide 28 Anion Gap 5 BUN 42 H Creatinine 1.31 H Estim Creat Clear Calc Not Reportable Estimated GFR 39 L Glucose 104 Calcium 8.9 Total Bilirubin 0.9 AST 25 ALT 16 Alkaline Phosphatase 74 Total Protein 5.8 L Albumin 3.2 L Quality VTE Prophylaxis VTE prophylaxis: mechanical ordered and pharmacologic ordered
[2025-01-05 07:49] LABS: Alanine Aminotransferase 11 U/L (6-35); Albumin Level 2.9 g/dL (3.5-5.1); Alkaline Phosphatase 68 U/L (38-126); Anion Gap 3 mmol/L (4-12); Aspartate Amino Transferase 25 U/L (14-36); Bilirubin,Total 0.6 mg/dL (0.2-1.3); Blood Urea Nitrogen 38 mg/dL (7-17); Calcium 8.2 mg/dL (8.4-10.2); Carbon Dioxide 27 mmol/L (22-30); Chloride 101 mmol/L (98-107); Estimated Glomerular Filt Rate 54; Glucose 92 mg/dL (65-110); Potassium 3.3 mmol/L (3.4-5.0); Sodium 131 mmol/L (137-145); Total Protein 5.4 g/dL (6.3-8.2)
[2025-01-05] MEDS: DRONEDARONE HCL 400 MG TABLET PO ×2 (09:27→17:11)
[2025-01-05] MEDS: CLOPIDOGREL BISULFATE 75 MG TABLET PO (09:27)
[2025-01-05] MEDS: ENOXAPARIN 40 MG/0.4 ML SYRINGE SUB-Q (09:27)
[2025-01-05] MEDS: METOPROLOL SUCCINATE EXT REL 25 MG TABCR PO (09:27)
[2025-01-05] MEDS: SODIUM CHLORIDE 0.9% IV 1,000 ML 75 ML IV CONT ×2 (09:29→23:00)
[2025-01-05] MEDS: FLUTICASONE PROP 110 MCG INHALER 12 GM (*SP) 2 PUFF INHALATION ×2 (10:41→20:50)
[2025-01-05] MEDS: guaiFENesin 12 HR 600 MG TABCR 1200 MG PO ×2 (12:36→21:12)
[2025-01-05] MEDS: POTASSIUM CHLORIDE 20 MEQ PACKET (FOR LIQUID) 40 MEQ PO (12:38)
[2025-01-05] MEDS: cefTRIAXone 1 GM in SODIUM CHLORIDE 0.9% IV 50 ML 100 ML IVPB (21:15)
[2025-01-05] MEDS: AZITHROMYCIN IV 500 MG in SODIUM CHLORIDE 0.9% IV 250 ML IVPB (21:56)
[2025-01-06] VITALS (11 sets, daily range): BP systolic 131–137; BP diastolic 73–85; PULSE 71–86; RESP 16–18; TEMP 36.3–36.8; O2SAT 94–97
--- NOTE | 2025-01-06 | ECHO_ITS ---
Patient Info Name: Fouzia Obrien Age: 74 years : 1950 Gender: Female Ht: 59 in Wt: 165 lbs BSA: 1.80 m2 HR: 86 bpm BP: 137 / 73 mmHg Heart Rhythm: Atrial Fibrillation Technical Quality: Good Exam Date: 01/06/2025 2:59 PM Patient Status: I Admit Date: 01/04/2025 Exam Type: CA echo doppler color flow Complete two-dimensional, color flow and Doppler transthoracic echocardiogram is performed. Staff Referring Physician: Michael Dinh Certified Cytotechnologist: Tru Justin III Attending Provider: Shaye Boucher DO Summary 1. Complete two-dimensional, color flow and Doppler transthoracic echocardiogram is performed. 2. Left ventricular hypertrophy with adequate systolic function and no regional wall motion abnormality. 3. Severely dilated left atrium. 4. Moderate mitral regurgitation. 5. Aortic valve appearance is typical of a TAVR valve. Device is functioning normally. No information was given to me regarding the valve details. 6. Atrial fibrillation. Left Ventricle Left ventricular chamber dimension is normal. Left ventricular systolic function is normal, estimated at 50-55. The left ventricular diastolic function is indeterminate. Right Ventricle Right ventricular chamber dimension is normal. Left Atria Left atrial chamber dimension is severely enlarged. Right Atria Right atrial chamber dimension is normal. Aortic Valve There is no regurgitation of the TAVR aortic valve. Pulmonic Valve The pulmonic valve is normal. Mitral Valve The mitral valve has normal leaflets. There is moderate mitral valve regurgitation. Tricuspid Valve The tricuspid valve leaflets are normal. Pericardium/Pleural The pericardium appears normal. Aorta The aortic root size at the sinus of Valsalva is normal. Left Ventricular Outflow Tract Name Value Normal LVOT 2D LVOT Diameter 2.0 cm LVOT Doppler LVOT Peak Velocity 129 cm/s LVOT Peak Gradient 7 mmHg LVOT Mean Gradient 4 mmHg LVOT VTI 32 cm LVOT VTI/AV VTI Ratio 0.9 LVOT Stroke Volume 97 ml LVOT CO 6.9 l/min LVOT CI 3.9 l/min/m2 Pulmonic Valve Name Value Normal PV Doppler PV Peak Velocity 161 cm/s PV Peak Gradient 10 mmHg PV Mean Gradient 1 mmHg PV Regurgitation Doppler TN Peak End Diastolic Velocity 99 cm/s Mitral Valve Name Value Normal MV Doppler MV Peak Gradient 11 mmHg MV Mean Gradient 2 mmHg MV Area (Cont Eq VTI) 2.2 cm2 MV Regurgitation Doppler MR Peak Gradient 152 mmHg MV Diastolic Function MV E Peak Velocity 142 cm/s MV Decel Time (PW) 190 ms MV Annular TDI MV E/e' (Septal) 12.0 MV E/e' (Lateral) 10.7 MV E/e' (Average) 11.3 Tricuspid Valve Name Value Normal TV Regurgitation Doppler TR Peak Velocity 278 cm/s TR Peak Gradient 23 mmHg Estimated PAP/RSVP RA Pressure 10 mmHg <=5 PA Systolic Pressure 41 mmHg <36 RV Systolic Pressure 41 mmHg <36 TV Annular TDI TV Lateral Mar s' Velocity 10.0 cm/s >=9.5 Aortic Valve Name Value Normal AV Doppler AV Peak Velocity 231 cm/s AV Peak Gradient 20 mmHg AV Mean Gradient 8 mmHg AV VTI 36 cm AV Area (Cont Eq VTI) 2.7 cm2 >=3.0 AV Area (Cont Eq Marko) 1.7 cm2 AV DI (Marko) 0.56 AV Regurgitation 2D LVOT Area 3.0 cm2 Ventricles Name Value Normal LV Dimensions 2D/MM IVS Diastolic Thickness (2D) 1.4 cm 0.6-1.0 LVID Diastole (2D) 3.7 cm 3.8-5.2 LVIW Diastolic Thickness (2D) 1.2 cm 0.6-0.9 LVID Systole (2D) 2.6 cm 2.2-3.5 LVOT Diameter 2.0 cm LV Mass (2D Cubed) 163.65 g 67.00-162.00 LV Mass Index (2D Cubed) 91 g/m2 43-95 Relative Wall Thickness (2D) 0.66 <=0.42 LV Fractional Shortening/Ejection Fraction 2D/MM LV Fractional Shortening (2D) 31 % 27-45 LV EF (2D Teichholz) 59 % LV Diastolic Volume (4C MOD) 83 ml LV EF (4C MOD) 58 % LV Diastolic Volume (2C MOD) 58 ml LV EF (2C MOD) 60 % LV Diastolic Volume (BP MOD) 72 ml 46-106 LV Diastolic Volume Index (BP MOD) 40 ml/m2 29-61 LV Systolic Volume (BP MOD) 29 ml 14-42 LV Systolic Volume Index (BP MOD) 16 ml/m2 8-24 LV EF (BP MOD) 60 % 54-74 LV Diastolic Length (4C) 7.1 cm LV Systolic Length (4C) 5.9 cm LV Stroke Volume (4C MOD) 48 ml Atria Name Value Normal LA Dimensions LA Volume (4C A-L) 137 ml LA Volume (BP A-L) 127 ml RA Dimensions RA Systolic Major [place] Length (4C) 5.8 cm 2.2-2.8 RA Area (4C) 21.8 cm2 <=18.0 Report Signatures
--- NOTE | 2025-01-06 00:21 | PC.NURSE ---
Megan Barrera notified pt having persistent coughing fits that are constantly waking her up. Santos Jeter were D/C to encourage coughing, however pt is becoming exhausted from extremely frequent coughing episodes and will likely not sleep overnight w/o some type of suppressant. One time phenergen/codeine ordered to allow for quality sleep overnight.
[2025-01-06] MEDS: PROMETHAZINE/CODEINE (*CRX) 5 ML SYRUP PO (00:52)
[2025-01-06 05:09] LABS: Hematocrit 31.7 % (37.0-47.0); Hemoglobin 10.3 g/dL (12.0-15.0); Immature Granulocyte Percent A 0.8 % (0-0.5); Lymphocytes Absolute Auto 1.20 K/mm3 (0.9-3.2); Mean Corpuscular HGB Conc 32.5 g/dl (32-36); Mean Corpuscular Hemoglobin 31.8 pg (26-34); Mean Corpuscular Volume 97.8 fl (80-100); Nucleated Red Blood Cells Absolute Auto 0.000 K/mm3 (0.0-0.012); Nucleated Red Blood Cells Perc 0.0 % (0.0-0.2); Platelet Count Result 125 k/mm3 (150-375); Red Blood Count 3.24 M/mm3 (4.2-5.4); White Blood Count 8.5 K/mm3 (4.5-10.0)
[2025-01-06 05:28] LABS: Alanine Aminotransferase 13 U/L (6-35); Albumin Level 2.8 g/dL (3.5-5.1); Alkaline Phosphatase 70 U/L (38-126); Anion Gap 4 mmol/L (4-12); Aspartate Amino Transferase 26 U/L (14-36); Bilirubin,Total 0.4 mg/dL (0.2-1.3); Blood Urea Nitrogen 25 mg/dL (7-17); Calcium 8.1 mg/dL (8.4-10.2); Carbon Dioxide 25 mmol/L (22-30); Chloride 105 mmol/L (98-107); Estimated Glomerular Filt Rate > 60; Glucose 82 mg/dL (65-110); Potassium 3.3 mmol/L (3.4-5.0); Sodium 134 mmol/L (137-145); Total Protein 5.5 g/dL (6.3-8.2)
[2025-01-06] MEDS: CLOPIDOGREL BISULFATE 75 MG TABLET PO (08:55)
[2025-01-06] MEDS: guaiFENesin 12 HR 600 MG TABCR 1200 MG PO ×2 (08:55→20:17)
[2025-01-06] MEDS: DRONEDARONE HCL 400 MG TABLET PO ×2 (08:55→17:14)
[2025-01-06] MEDS: POTASSIUM CHLORIDE 20 MEQ ER TABLET 40 MEQ PO (08:56)
[2025-01-06] MEDS: METOPROLOL SUCCINATE EXT REL 25 MG TABCR PO (08:56)
[2025-01-06] MEDS: ENOXAPARIN 40 MG/0.4 ML SYRINGE SUB-Q (09:01)
--- NOTE | 2025-01-06 09:18 | PM.IMPN ---
Progress Note: A&P Assessment and Plan (1) Community acquired pneumonia: Code(s): J18.9 - Pneumonia, unspecified organism Status: Acute Assessment and Plan: Per CXR & CT WBC elevated, continuing to downtrend, normalized today Abx started in ED: Azithro & Rocephin Sputum culture WDL Continue guaifenesin due to still present productive phlegm cough, will continue to monitor (2) Sepsis: Code(s): A41.9 - Sepsis, unspecified organism Status: Acute Assessment and Plan: Sepsis WBC downtrending, now normalized VSS BC prelim Gram+ cocci x1 bottle --Continue Rocephin. Echo, MRSA swab, and repeat BC pending, await results with sensitivities UC with mixed urogenital radames, WDL (3) Dehydration: Code(s): E86.0 - Dehydration Status: Acute Assessment and Plan: IVF bolus initiated in ED -Continue NS 75ml/hr -Reports oral fluid intake WDL for her, moist mucus membranes, appetite still poor (4) Hypokalemia: Code(s): E87.6 - Hypokalemia Status: Acute Assessment and Plan: 3.1 in the ED, repleted there 3.7 with recheck 01/04, continue with daily labs 3.3 with recheck 01/05. will replete via oral again. pt with decreased appetite. continue daily labs 3.3 with recheck 01/06, pt refused liquid K last night. Liquid ordered due to interaction with oxybutynin. -Held oxybutynin today and ordered K 40meq tab instead one time dose & 20meq daily starting tomorrow until appetite back to normal, encouraged oral intake. Continue daily labs. (5) Renal calculi: Code(s): N20.0 - Calculus of kidney Status: Acute Assessment and Plan: Per CT, chronic, states that she has had a total of 8 in the past and she can tell when present -Denies CVA pain or urinary sx (6) Atrial fibrillation: Code(s): I48.91 - Unspecified atrial fibrillation Status: Acute Assessment and Plan: Tele, EKG in ED 480 QTc -Denies CP, SOB, palpitations -Continue home meds: Plavix, dronedarone Plan Continue with course of abx IV abx for sepsis/PNA/bacteremia Subjective Date/time seen: 01/06/25 0855 Interval history: Patient lying in bed with no acute distress upon my entry. Patient states that she is breathing better, but is still having phlegm that is being coughed up. Overall better breathing status. Patient states that she has been coughing throughout the night, and is tired and continues to be weak today. Plan for rest today with potassium repletion. She had refused potassium drink last night and had a potassium of 3.3 this morning. will give oral K while holding her oxybutynin. Review of Systems Review of Systems: All systems reviewed & are unremarkable except as noted in HPI and below Exam Narrative: Elderly Const: General: no acute distress and uncomfortable HENMT: Face/Nose/Sinus: Normal nares present Mouth: Yes moist mucous membranes Eyes: General: appearance normal, both eyes and all related structures Sclera: sclerae normal Pupils: Equal, round and reactive pupils present Neck: Neck: supple Carotids: no bruits Resp: Effort & Inspection: normal respiratory effort Auscultation: diminished lung sounds on the left in the lower lung munoz Cardio: Rate: regular rate Rhythm: regular rhythm and abnormal rhythm irregularly irregular Other: TELE afib 89bpm GI: Inspection: non-distended Auscultation: normal bowel sounds Back/Spine/Pelvis: Other: TTP lumbar spine, paraspinal bilaterally Skin: General skin exam: normal color and no rashes or lesions noted Neuro: Cranial nerves: Yes Equal, round and reactive pupils present Speech: normal speech Motor exam (neuro): Normal motor muscle tone present throughout Sensory Exam: normal sensation Extrem: General: normal to inspection and normal exam except as noted Psych: Mental Status: mental status grossly normal Affect: normal affect Objective Data Vital Signs Vital Signs: Vital Signs - 24 hr 01/05/25 09:27 01/05/25 09:27 01/05/25 09:30 Temperature Pulse Rate 104 H 104 H Respiratory Rate Blood Pressure Pulse Oximetry Oxygen Delivery Room Air Fraction of Inspired Oxygen 01/05/25 10:42 01/05/25 12:00 01/05/25 14:00 Temperature 97.7 F Pulse Rate 95 77 Respiratory Rate 17 Blood Pressure 132/83 Pulse Oximetry 96 95 Oxygen Delivery Room Air Fraction of Inspired Oxygen 01/05/25 16:00 01/05/25 17:11 01/05/25 19:46 Temperature 99.4 F Pulse Rate 97 94 97 Respiratory Rate 18 Blood Pressure 134/79 Pulse Oximetry 96 Oxygen Delivery Fraction of Inspired Oxygen 01/05/25 20:00 01/05/25 20:00 01/05/25 20:51 Temperature Pulse Rate 82 85 Respiratory Rate 16 Blood Pressure Pulse Oximetry 97 Oxygen Delivery Room Air Room Air Fraction of Inspired Oxygen 21 01/05/25 20:51 01/06/25 00:00 01/06/25 04:00 Temperature Pulse Rate 85 75 73 Respiratory Rate 16 Blood Pressure Pulse Oximetry Oxygen Delivery Fraction of Inspired Oxygen 01/06/25 04:38 01/06/25 08:55 01/06/25 08:56 Temperature 98.2 F Pulse Rate 71 86 86 Respiratory Rate 18 Blood Pressure 137/73 Pulse Oximetry 94 Oxygen Delivery Fraction of Inspired Oxygen Intake/Output Intake/Output: Intake & Output 01/03/25 01/04/25 01/05/25 01/06/25 23:59 23:59 23:59 23:59 Intake Total 5521.6 2818.7 530 Output Total 400 800 Balance 5121.6 2018.7 530 Meds/Results Medications: Active Medications Generic Name Dose Route Start Last Admin Trade Name Freq PRN Reason Stop Dose Admin Acetaminophen 650 mg 01/03/25 23:28 Acetaminophen 325 Mg Tablet PO Q4H PRN Mild Pain (1-3) or Fever Hydrocodone Bitart/Acetaminophen 1 tab 01/04/25 12:24 01/04/25 14:33 Hydrocodone/Acetaminophen (*Crx) 5-325 Mg Tablet PO 1 tab BID PRN Administration Pain Albuterol 1 puff 01/04/25 07:44 Albuterol Sulfate (*Sp) Aerosol 1 Puff INHALATION Q6H PRN Shortness Of Breath Or Wheezing Allopurinol 100 mg 01/04/25 09:00 01/06/25 08:55 Allopurinol 100 Mg Tablet PO 100 mg DAILY MISBAH Administration Benzonatate 200 mg 01/04/25 07:54 01/04/25 22:41 Benzonatate 100 Mg Capsule PO 200 mg On Hold: 01/05/25 11:35 TID PRN Administration cough Clopidogrel Bisulfate 75 mg 01/04/25 09:00 01/06/25 08:55 Clopidogrel Bisulfate 75 Mg Tablet PO 75 mg DAILY MISBAH Administration Dronedarone 400 mg 01/04/25 08:00 01/06/25 08:55 Dronedarone Hcl 400 Mg Tablet PO 400 mg BIDWM MISBAH Administration Enoxaparin Sodium 40 mg 01/05/25 09:00 01/06/25 09:01 Enoxaparin 40 Mg/0.4 Ml Syringe SUB-Q 40 mg DAILY MISBAH Administration Fluticasone Propionate 2 puff 01/04/25 08:00 01/06/25 08:36 Fluticasone Prop 110 Mcg Inhaler 12 Gm (*Sp) INHALATION Not Given Q12HRT MISBAH Guaifenesin 1,200 mg 01/05/25 11:35 01/06/25 08:55 Guaifenesin 12 Hr 600 Mg Tabcr PO 1,200 mg Q12HR MISBAH Administration Sodium Chloride 1,000 mls @ 75 mls/hr 01/04/25 00:50 01/05/25 23:00 Normal Saline Iv IV CONT 75 mls/hr .[id number] MISBAH Administration Ceftriaxone Sodium 1 gm/ 50 mls @ 100 mls/hr 01/04/25 21:00 01/05/25 21:45 Sodium Chloride IVPB 01/09/25 21:29 Infused Q24H MISBAH Infusion Azithromycin 500 mg/ Sodium 250 mls @ 250 mls/hr 01/04/25 21:00 01/05/25 22:56 Chloride IVPB 01/07/25 21:59 Infused Q24H MISBAH Infusion Metoprolol Succinate 25 mg 01/04/25 09:00 01/06/25 08:56 Metoprolol Succinate Ext Rel 25 Mg Tabcr PO 25 mg DAILY MISBAH Administration Oxybutynin Chloride 10 mg 01/04/25 09:00 01/05/25 09:26 Oxybutynin Chloride 5 Mg Tablet PO 10 mg On Hold: 01/06/25 07:37 DAILY MISBAH Administration Oxybutynin Chloride 5 mg 01/04/25 21:00 01/05/25 21:13 Oxybutynin Chloride 5 Mg Tablet PO 5 mg On Hold: 01/06/25 07:37 HS MISBAH Administration Potassium Chloride 20 meq 01/05/25 17:00 01/06/25 08:44 Potassium Chloride 20 Meq Packet (For Liquid) PO Not Given BID MISBAH Trimethobenzamide HCl 200 mg 01/04/25 07:54 Trimethobenzamide Hcl 200 Mg/2 Ml Vial IM Q6H PRN Nausea And Vomiting Radiology Results: ITS Impressions Chest X-Ray 01/03/25 19:01 IMPRESSION: 1. Cardiomegaly, atherosclerotic aorta and aortic graft placement. 2. Significant consolidation and loss of volume due to atelectasis of left lower lobe. Possible changes of pneumonia. However, obstruction by tumor or foreign body aspiration not ruled out. Radiographic follow-up is needed and if necessary CT follow-up can be obtained. Chest/Abdomen/Pelvis CT 01/03/25 21:22 IMPRESSION: 1. Limited noncontrast CT, not optimal to evaluate neoplasms, vascular structures and solid viscera. 2. Significant consolidation and loss of volume of left lower lobe. Air bronchogram is present through the consolidation of left lower lobe. Findings are most likely due to persistent pneumonia of left lower lobe. Clinical and lab follow-up are needed along with chest x-ray follow-up to ensure complete resolution of the pneumonia. 3. Bilateral nonobstructing renal calculi. 4. Degenerative disc changes of thoracolumbar discs. Labs Labs: Laboratory Results - last 24 hr 01/06/25 04:39 WBC 8.5 RBC 3.24 L Hgb 10.3 L Hct 31.7 L MCV 97.8 MCH 31.8 MCHC 32.5 RDW 15.6 H Plt Count 125 L MPV 12.5 H Immature Gran % (Auto) 0.8 H Neut % (Auto) 73.4 H Lymph % (Auto) 14.1 L [place] % (Auto) 10.2 H Eos % (Auto) 1.1 Baso % (Auto) 0.4 Lymph # (Auto) 1.20 [place] # (Auto) 0.9 H Eos # (Auto) 0.1 Baso # (Auto) 0.0 Abs Immat Gran (auto) 0.07 H Absolute Neuts (auto) 6.3 Absolute Nucleated RBC 0.000 Nucleated RBC % 0.0 Sodium 134 L Potassium 3.3 L Chloride 105 Carbon Dioxide 25 Anion Gap 4 BUN 25 H D Creatinine 0.80 Estim Creat Clear Calc Not Reportable Estimated GFR > 60 Glucose 82 Calcium 8.1 L Total Bilirubin 0.4 AST 26 ALT 13 Alkaline Phosphatase 70 Total Protein 5.5 L Albumin 2.8 L Quality VTE Prophylaxis VTE prophylaxis: mechanical ordered and pharmacologic ordered
[2025-01-06] MEDS: SODIUM CHLORIDE 0.9% IV 1,000 ML 75 ML IV CONT (12:21)
[2025-01-06 15:08] LABS: MRSA (PCR) NOT DETECTED (NOT DETECTE)
[2025-01-06] MEDS: cefTRIAXone 1 GM in SODIUM CHLORIDE 0.9% IV 50 ML 100 ML IVPB (20:16)
[2025-01-06] MEDS: AZITHROMYCIN IV 500 MG in SODIUM CHLORIDE 0.9% IV 250 ML IVPB (21:20)
[2025-01-07] VITALS (13 sets, daily range): BP systolic 146–156; BP diastolic 85–89; PULSE 71–98; RESP 20; TEMP 36.2–36.7; O2SAT 96
[2025-01-07] MEDS: SODIUM CHLORIDE 0.9% IV 1,000 ML 75 ML IV CONT ×2 (05:05→16:56)
[2025-01-07 05:48] LABS: Hematocrit 36.0 % (37.0-47.0); Hemoglobin 11.6 g/dL (12.0-15.0); Immature Granulocyte Percent A 1.3 % (0-0.5); Immature Platelet Fraction Pct 6.7 % (0.9-11.2); Lymphocytes Absolute Auto 1.20 K/mm3 (0.9-3.2); Mean Corpuscular HGB Conc 32.2 g/dl (32-36); Mean Corpuscular Hemoglobin 32.0 pg (26-34); Mean Corpuscular Volume 99.2 fl (80-100); Nucleated Red Blood Cells Absolute Auto 0.000 K/mm3 (0.0-0.012); Nucleated Red Blood Cells Perc 0.0 % (0.0-0.2); Platelet Count Result 137 k/mm3 (150-375); Red Blood Count 3.63 M/mm3 (4.2-5.4); White Blood Count 6.8 K/mm3 (4.5-10.0)
[2025-01-07 06:07] LABS: Alanine Aminotransferase 29 U/L (6-35); Albumin Level 3.1 g/dL (3.5-5.1); Alkaline Phosphatase 82 U/L (38-126); Anion Gap 5 mmol/L (4-12); Aspartate Amino Transferase 55 U/L (14-36); Bilirubin,Total 0.5 mg/dL (0.2-1.3); Blood Urea Nitrogen 17 mg/dL (7-17); Calcium 8.5 mg/dL (8.4-10.2); Carbon Dioxide 27 mmol/L (22-30); Chloride 105 mmol/L (98-107); Estimated Glomerular Filt Rate > 60; Glucose 89 mg/dL (65-110); Magnesium 1.8 mg/dL (1.6-2.3); Potassium 3.5 mmol/L (3.4-5.0); Sodium 137 mmol/L (137-145); Total Protein 6.1 g/dL (6.3-8.2)
--- NOTE | 2025-01-07 07:42 | PM.IMPN ---
Progress Note: A&P Assessment and Plan (1) Community acquired pneumonia: Code(s): J18.9 - Pneumonia, unspecified organism Status: Acute Assessment and Plan: Per CXR & CT WBC normalized Abx started in ED: Azithro & Rocephin (last day of azithro today) Sputum culture WDL Pt reports a decrease in sputum production / expelling when coughing which has made her feel better getting it up, probable plan to d/c guaifenesin tomorrow after continued monitoring. (2) Sepsis: Code(s): A41.9 - Sepsis, unspecified organism Status: Acute Assessment and Plan: Sepsis resolved WBC now normalized VSS BC #1 final with strep pneumoniae --Continue Rocephin. MRSA neg. Pending repeat BC. --Echo negative for endocarditis UC with mixed urogenital radames, WDL (3) Dehydration: Code(s): E86.0 - Dehydration Status: Acute Assessment and Plan: IVF bolus initiated in ED -Continue NS 75ml/hr -Reports oral fluid intake WDL for her, moist mucus membranes, appetite still poor (4) Hypokalemia: Code(s): E87.6 - Hypokalemia Status: Acute Assessment and Plan: 3.1 in the ED, repleted there 3.7 with recheck 01/04, continue with daily labs 3.3 with recheck 01/05. will replete via oral again. pt with decreased appetite. continue daily labs 3.3 with recheck 01/06, pt refused liquid K last night. Liquid ordered due to interaction with oxybutynin. -Held oxybutynin today and ordered K 40meq tab instead one time dose & 20meq daily starting tomorrow until appetite back to normal, encouraged oral intake. Continue daily labs. 3.5 01/07, continue with daily suppl of 20meq x1 more day due to increase of appetite, consider d/c K suppl 01/09 if labs continue to normalize (5) Renal calculi: Code(s): N20.0 - Calculus of kidney Status: Acute Assessment and Plan: Per CT, chronic, states that she has had a total of 8 in the past and she can tell when present -Denies CVA pain or urinary sx (6) Atrial fibrillation: Code(s): I48.91 - Unspecified atrial fibrillation Status: Acute Assessment and Plan: Tele, EKG in ED 480 QTc -Denies CP, SOB, palpitations -Continue home meds: Plavix, dronedarone Plan Continue with course of abx IV abx for PNA/bacteremia Pt refusing heart healthy diet, understands risks of regular diet. Time Spent With Patient Time: 40 Subjective Date/time seen: 01/07/25 1050 Interval history: Pt ambulating in her room upon my entry. Pt states that she is better rested today, her cough is better, her appetite is increased, and she does not have any more SOB. Pt reports a decrease in sputum production / expelling when coughing which has made her feel better getting it up. Reiterated the plan to await new BC results. Denies CP or any other sx. Review of Systems Review of Systems: All systems reviewed & are unremarkable except as noted in HPI and below Exam Narrative: Elderly Const: General: no acute distress and uncomfortable HENMT: Face/Nose/Sinus: Normal nares present Mouth: Yes moist mucous membranes Other: tacky mucous membranes Eyes: General: appearance normal, both eyes and all related structures Sclera: sclerae normal Pupils: Equal, round and reactive pupils present Neck: Neck: supple Carotids: no bruits Resp: Effort & Inspection: normal respiratory effort Auscultation: crackles on the left in the lower lung munoz, wheezes expiratory wheezes and left lower and diminished lung sounds on the left in the lower lung munoz Cardio: Rate: regular rate Rhythm: regular rhythm and abnormal rhythm irregularly irregular Other: TELE afib 89bpm GI: Inspection: non-distended Auscultation: normal bowel sounds Back/Spine/Pelvis: Other: TTP lumbar spine, paraspinal bilaterally Skin: General skin exam: normal color and no rashes or lesions noted Neuro: Cranial nerves: Yes Equal, round and reactive pupils present Speech: normal speech Motor exam (neuro): 5/5 motor strength present throughout and Normal motor muscle tone present throughout Sensory Exam: normal sensation Extrem: General: normal to inspection and normal exam except as noted Psych: Mental Status: mental status grossly normal Affect: normal affect Objective Data Vital Signs Vital Signs: Vital Signs - 24 hr 01/06/25 08:00 01/06/25 08:55 01/06/25 08:56 Temperature Pulse Rate 86 86 Respiratory Rate Blood Pressure Pulse Oximetry Oxygen Delivery Room Air 01/06/25 12:00 01/06/25 14:00 01/06/25 16:00 Temperature 97.9 F Pulse Rate 83 86 76 Respiratory Rate 17 Blood Pressure 136/85 Pulse Oximetry 97 Oxygen Delivery 01/06/25 17:14 01/06/25 20:00 01/06/25 20:05 Temperature 97.4 F L Pulse Rate 83 78 78 Respiratory Rate 16 Blood Pressure 131/85 Pulse Oximetry 95 Oxygen Delivery 01/07/25 00:00 01/07/25 04:00 01/07/25 05:28 Temperature 98.1 F Pulse Rate 73 73 84 Respiratory Rate 20 Blood Pressure 146/85 H Pulse Oximetry 96 Oxygen Delivery Intake/Output Intake/Output: Intake & Output 01/04/25 01/05/25 01/06/25 01/07/25 23:59 23:59 23:59 23:59 Intake Total 5521.6 2818.7 2019 1350 Output Total 400 800 300 Balance 5121.6 2018.7 2019 1050 Meds/Results Medications: Active Medications Generic Name Dose Route Start Last Admin Trade Name Freq PRN Reason Stop Dose Admin Acetaminophen 650 mg 01/03/25 23:28 Acetaminophen 325 Mg Tablet PO Q4H PRN Mild Pain (1-3) or Fever Hydrocodone Bitart/Acetaminophen 1 tab 01/04/25 12:24 01/04/25 14:33 Hydrocodone/Acetaminophen (*Crx) 5-325 Mg Tablet PO 1 tab BID PRN Administration Pain Albuterol 1 puff 01/04/25 07:44 Albuterol Sulfate (*Sp) Aerosol 1 Puff INHALATION Q6H PRN Shortness Of Breath Or Wheezing Allopurinol 100 mg 01/04/25 09:00 01/06/25 08:55 Allopurinol 100 Mg Tablet PO 100 mg DAILY MISBAH Administration Benzonatate 200 mg 01/04/25 07:54 01/04/25 22:41 Benzonatate 100 Mg Capsule PO 200 mg On Hold: 01/05/25 11:35 TID PRN Administration cough Clopidogrel Bisulfate 75 mg 01/04/25 09:00 01/06/25 08:55 Clopidogrel Bisulfate 75 Mg Tablet PO 75 mg DAILY MISBAH Administration Dronedarone 400 mg 01/04/25 08:00 01/06/25 17:14 Dronedarone Hcl 400 Mg Tablet PO 400 mg BIDWM MISBAH Administration Enoxaparin Sodium 40 mg 01/05/25 09:00 01/06/25 09:01 Enoxaparin 40 Mg/0.4 Ml Syringe SUB-Q 40 mg DAILY MISBAH Administration Fluticasone Propionate 2 puff 01/04/25 08:00 01/06/25 21:22 Fluticasone Prop 110 Mcg Inhaler 12 Gm (*Sp) INHALATION Not Given Q12HRT MISBAH Guaifenesin 1,200 mg 01/05/25 11:35 01/06/25 20:17 Guaifenesin 12 Hr 600 Mg Tabcr PO 1,200 mg Q12HR MISBAH Administration Sodium Chloride 1,000 mls @ 75 mls/hr 01/04/25 00:50 01/07/25 05:05 Normal Saline Iv IV CONT 75 mls/hr .[id number] MISBAH Administration Ceftriaxone Sodium 1 gm/ 50 mls @ 100 mls/hr 01/04/25 21:00 01/06/25 20:46 Sodium Chloride IVPB 01/09/25 21:29 Infused Q24H MISBAH Infusion Azithromycin 500 mg/ Sodium 250 mls @ 250 mls/hr 01/04/25 21:00 01/06/25 21:20 Chloride IVPB 01/07/25 21:59 250 mls/hr Q24H MISBAH Administration Metoprolol Succinate 25 mg 01/04/25 09:00 01/06/25 08:56 Metoprolol Succinate Ext Rel 25 Mg Tabcr PO 25 mg DAILY MISBAH Administration Oxybutynin Chloride 10 mg 01/04/25 09:00 01/05/25 09:26 Oxybutynin Chloride 5 Mg Tablet PO 10 mg On Hold: 01/06/25 07:37 DAILY MISBAH Administration Oxybutynin Chloride 5 mg 01/04/25 21:00 01/05/25 21:13 Oxybutynin Chloride 5 Mg Tablet PO 5 mg On Hold: 01/06/25 07:37 HS MISBAH Administration Perflutren Lipid Microsphere 0 ml 01/06/25 10:49 Perflutren Lipid Microspheres 1.5 Ml Vial Diluted To 10 Ml Total Volume IV PUSH 01/09/25 10:49 ONCE PRN adequate visualization Protocol Potassium Chloride 20 meq 01/07/25 09:00 Potassium Chloride 20 Meq Er Tablet PO DAILY MISBAH Trimethobenzamide HCl 200 mg 01/04/25 07:54 Trimethobenzamide Hcl 200 Mg/2 Ml Vial IM Q6H PRN Nausea And Vomiting Radiology Results: ITS Impressions Chest X-Ray 01/03/25 19:01 IMPRESSION: 1. Cardiomegaly, atherosclerotic aorta and aortic graft placement. 2. Significant consolidation and loss of volume due to atelectasis of left lower lobe. Possible changes of pneumonia. However, obstruction by tumor or foreign body aspiration not ruled out. Radiographic follow-up is needed and if necessary CT follow-up can be obtained. Chest/Abdomen/Pelvis CT 01/03/25 21:22 IMPRESSION: 1. Limited noncontrast CT, not optimal to evaluate neoplasms, vascular structures and solid viscera. 2. Significant consolidation and loss of volume of left lower lobe. Air bronchogram is present through the consolidation of left lower lobe. Findings are most likely due to persistent pneumonia of left lower lobe. Clinical and lab follow-up are needed along with chest x-ray follow-up to ensure complete resolution of the pneumonia. 3. Bilateral nonobstructing renal calculi. 4. Degenerative disc changes of thoracolumbar discs. Labs Labs: Laboratory Results - last 24 hr 01/06/25 01/07/25 12:09 05:36 WBC 6.8 RBC 3.63 L Hgb 11.6 L Hct 36.0 L MCV 99.2 MCH 32.0 MCHC 32.2 RDW 15.8 H Plt Count 137 L MPV 12.0 H Immature Gran % (Auto) 1.3 H Neut % (Auto) 65.2 Lymph % (Auto) 17.8 L [place] % (Auto) 13.6 H Eos % (Auto) 1.8 Baso % (Auto) 0.3 Lymph # (Auto) 1.20 [place] # (Auto) 0.9 H Eos # (Auto) 0.1 Baso # (Auto) 0.0 Abs Immat Gran (auto) 0.09 H Absolute Neuts (auto) 4.4 Absolute Nucleated RBC 0.000 Nucleated RBC % 0.0 % Immature Plt Fraction 6.7 Sodium 137 Potassium 3.5 Chloride 105 Carbon Dioxide 27 Anion Gap 5 BUN 17 Creatinine 0.67 L Estim Creat Clear Calc Not Reportable Estimated GFR > 60 Glucose 89 Calcium 8.5 Magnesium 1.8 Total Bilirubin 0.5 AST 55 H ALT 29 Alkaline Phosphatase 82 Total Protein 6.1 L Albumin 3.1 L Nasal MRSA (PCR) Not detected Quality VTE Prophylaxis VTE prophylaxis: mechanical ordered and pharmacologic ordered
[2025-01-07] MEDS: DRONEDARONE HCL 400 MG TABLET PO ×2 (10:07→16:55)
[2025-01-07] MEDS: CLOPIDOGREL BISULFATE 75 MG TABLET PO (10:08)
[2025-01-07] MEDS: ENOXAPARIN 40 MG/0.4 ML SYRINGE SUB-Q (10:09)
[2025-01-07] MEDS: METOPROLOL SUCCINATE EXT REL 25 MG TABCR PO (10:09)
[2025-01-07] MEDS: guaiFENesin 12 HR 600 MG TABCR 1200 MG PO ×2 (10:10→20:59)
[2025-01-07] MEDS: FLUTICASONE PROP 110 MCG INHALER 12 GM (*SP) 2 PUFF INHALATION (20:48)
[2025-01-07] MEDS: cefTRIAXone 1 GM in SODIUM CHLORIDE 0.9% IV 50 ML 100 ML IVPB (20:59)
[2025-01-07] MEDS: HYDROcodone/acetaminophen (*CRX) 5-325 MG TABLET 1 TAB PO (21:02)
[2025-01-07] MEDS: AZITHROMYCIN IV 500 MG in SODIUM CHLORIDE 0.9% IV 250 ML IVPB (21:41)
--- NOTE | 2025-01-07 21:50 | PC.NURSE ---
PT STATES SHE HAD REFUSED POTASSIUM PILL THIS AM AND WOULD LIKE TO TAKE IT NOW
[2025-01-07] MEDS: POTASSIUM CHLORIDE 20 MEQ ER TABLET PO (22:06)
[2025-01-08] VITALS (12 sets, daily range): BP systolic 124–177; BP diastolic 80–96; PULSE 62–103; RESP 16–20; TEMP 36.2–37.1; O2SAT 93–98
[2025-01-08 05:51] LABS: Hematocrit 36.0 % (37.0-47.0); Hemoglobin 11.7 g/dL (12.0-15.0); Immature Granulocyte Percent A 2.7 % (0-0.5); Lymphocytes Absolute Auto 1.31 K/mm3 (0.9-3.2); Mean Corpuscular HGB Conc 32.5 g/dl (32-36); Mean Corpuscular Hemoglobin 31.1 pg (26-34); Mean Corpuscular Volume 95.7 fl (80-100); Nucleated Red Blood Cells Absolute Auto 0.000 K/mm3 (0.0-0.012); Nucleated Red Blood Cells Perc 0.0 % (0.0-0.2); Platelet Count Result 178 k/mm3 (150-375); Red Blood Count 3.76 M/mm3 (4.2-5.4); White Blood Count 7.5 K/mm3 (4.5-10.0)
[2025-01-08 06:02] LABS: Alanine Aminotransferase 29 U/L (6-35); Albumin Level 3.4 g/dL (3.5-5.1); Alkaline Phosphatase 81 U/L (38-126); Anion Gap 5 mmol/L (4-12); Aspartate Amino Transferase 46 U/L (14-36); Bilirubin,Total 0.7 mg/dL (0.2-1.3); Blood Urea Nitrogen 8 mg/dL (7-17); Calcium 8.5 mg/dL (8.4-10.2); Carbon Dioxide 25 mmol/L (22-30); Chloride 104 mmol/L (98-107); Estimated Glomerular Filt Rate > 60; Glucose 84 mg/dL (65-110); Potassium 3.6 mmol/L (3.4-5.0); Sodium 134 mmol/L (137-145); Total Protein 6.4 g/dL (6.3-8.2)
[2025-01-08 06:37] LABS: Burr Cells 1+; Schistocytes None Seen
--- NOTE | 2025-01-08 07:41 | PM.IMPN ---
Progress Note: A&P Assessment and Plan (1) Community acquired pneumonia: Code(s): J18.9 - Pneumonia, unspecified organism Status: Acute Assessment and Plan: Per CXR & CT WBC normalized Abx started in ED: Azithro & Rocephin (last day of azithro 01/07) Sputum culture +manuela only, likely contaminate Pt reports a decrease in sputum production / expelling when coughing which has made her feel better getting it up, probable plan to d/c guaifenesin tomorrow after continued monitoring. (2) Sepsis: Code(s): A41.9 - Sepsis, unspecified organism Status: Acute Assessment and Plan: Sepsis resolved WBC now normalized VSS BC #1 final with strep pneumoniae, probable source of PNA --Continue Rocephin. MRSA neg. --Pending repeat BC. --Echo negative for endocarditis UC with mixed urogenital radames, WDL (3) Dehydration: Code(s): E86.0 - Dehydration Status: Acute Assessment and Plan: IVF bolus initiated in ED -Pt appetitie fair today but reporting is still eating and drinking appropriately, D/C IVF (4) Hypokalemia: Code(s): E87.6 - Hypokalemia Status: Acute Assessment and Plan: 3.1 in the ED, repleted there 3.7 with recheck 01/04, continue with daily labs 3.3 with recheck 01/05. will replete via oral again. pt with decreased appetite. continue daily labs 3.3 with recheck 01/06, pt refused liquid K last night. Liquid ordered due to interaction with oxybutynin. -Held oxybutynin today and ordered K 40meq tab instead one time dose & 20meq daily starting tomorrow until appetite back to normal, encouraged oral intake. Continue daily labs. 3.5 01/07, continue with daily suppl of 20meq x1 more day due to increase of appetite, consider d/c K suppl 01/09 if labs continue to normalize 3.6 today, D/C suppl due to uptrending values and normalized appetite. (5) Renal calculi: Code(s): N20.0 - Calculus of kidney Status: Acute Assessment and Plan: Per CT, chronic, states that she has had a total of 8 in the past and she can tell when present -Denies CVA pain or urinary sx (6) Atrial fibrillation: Code(s): I48.91 - Unspecified atrial fibrillation Status: Acute Assessment and Plan: Tele, EKG in ED 480 QTc -Denies CP, SOB, palpitations -Continue home meds: Plavix, dronedarone Plan Continue with course of abx IV abx for PNA/bacteremia, pending repeat BC D/C K suppl today, restart oxybutynin Pt refusing heart healthy diet, understands risks of regular diet. Time Spent With Patient Time: 35 Subjective Date/time seen: 01/08/25 0938 Interval history: Pt sleeping up in her chair upon my arrival, arousable to voice and touch. Pt states that she does not feel as well as she did yesterday, but she blames it on being in the hospital for several days and lack of sleep. Slight decrease in appetite, denies SOB, MCCARTHY, and CP. Still with sputum productive cough. Pt's to bring her soup today so she has something she likes to eat. Review of Systems Review of Systems: All systems reviewed & are unremarkable except as noted in HPI and below Exam Narrative: Elderly Const: General: no acute distress and uncomfortable HENMT: Face/Nose/Sinus: Normal nares present Mouth: Yes moist mucous membranes Eyes: General: appearance normal, both eyes and all related structures Sclera: sclerae normal Pupils: Equal, round and reactive pupils present Neck: Neck: supple Resp: Effort & Inspection: normal respiratory effort Auscultation: clear to auscultation bilaterally Cardio: Rate: regular rate Rhythm: regular rhythm and abnormal rhythm irregularly irregular Other: TELE afib 89bpm GI: Inspection: non-distended Auscultation: normal bowel sounds Skin: General skin exam: normal color and no rashes or lesions noted Neuro: Cranial nerves: Yes Equal, round and reactive pupils present Speech: normal speech Motor exam (neuro): Normal motor muscle tone present throughout Sensory Exam: normal sensation Extrem: General: normal to inspection and normal exam except as noted Psych: Mental Status: mental status grossly normal Affect: normal affect Objective Data Vital Signs Vital Signs: Vital Signs - 24 hr 01/07/25 08:00 01/07/25 08:00 01/07/25 10:07 Temperature Pulse Rate 98 85 Respiratory Rate Blood Pressure Pulse Oximetry Oxygen Delivery Room Air 01/07/25 10:09 01/07/25 12:00 01/07/25 14:00 Temperature 97.1 F L Pulse Rate 85 97 97 Respiratory Rate 20 Blood Pressure 156/88 H Pulse Oximetry 96 Oxygen Delivery 01/07/25 16:00 01/07/25 16:55 01/07/25 19:48 Temperature 98.1 F Pulse Rate 83 89 84 Respiratory Rate 20 Blood Pressure 156/89 H Pulse Oximetry 96 Oxygen Delivery 01/07/25 20:00 01/07/25 20:48 01/08/25 00:00 Temperature Pulse Rate 96 71 103 H Respiratory Rate 20 Blood Pressure Pulse Oximetry Oxygen Delivery 01/08/25 04:00 01/08/25 04:57 Temperature 97.1 F L Pulse Rate 79 62 Respiratory Rate 20 Blood Pressure 177/96 H Pulse Oximetry 93 Oxygen Delivery Intake/Output Intake/Output: Intake & Output 01/05/25 01/06/25 01/07/25 01/08/25 23:59 23:59 23:59 23:59 Intake Total 2818.7 2270 3258.8 350 Output Total 800 300 Balance 2018.7 2270 2958.8 350 Meds/Results Medications: Active Medications Generic Name Dose Route Start Last Admin Trade Name Freq PRN Reason Stop Dose Admin Acetaminophen 650 mg 01/03/25 23:28 Acetaminophen 325 Mg Tablet PO Q4H PRN Mild Pain (1-3) or Fever Hydrocodone Bitart/Acetaminophen 1 tab 01/04/25 12:24 01/07/25 21:02 Hydrocodone/Acetaminophen (*Crx) 5-325 Mg Tablet PO 1 tab BID PRN Administration Pain Albuterol 1 puff 01/04/25 07:44 Albuterol Sulfate (*Sp) Aerosol 1 Puff INHALATION Q6H PRN Shortness Of Breath Or Wheezing Allopurinol 100 mg 01/04/25 09:00 01/07/25 10:08 Allopurinol 100 Mg Tablet PO 100 mg DAILY MISBAH Administration Benzonatate 200 mg 01/04/25 07:54 01/04/25 22:41 Benzonatate 100 Mg Capsule PO 200 mg On Hold: 01/05/25 11:35 TID PRN Administration cough Clopidogrel Bisulfate 75 mg 01/04/25 09:00 01/07/25 10:08 Clopidogrel Bisulfate 75 Mg Tablet PO 75 mg DAILY MISBAH Administration Dronedarone 400 mg 01/04/25 08:00 01/07/25 16:55 Dronedarone Hcl 400 Mg Tablet PO 400 mg BIDWM MISBAH Administration Enoxaparin Sodium 40 mg 01/05/25 09:00 01/07/25 10:09 Enoxaparin 40 Mg/0.4 Ml Syringe SUB-Q 40 mg DAILY MISBAH Administration Fluticasone Propionate 2 puff 01/04/25 08:00 01/07/25 20:48 Fluticasone Prop 110 Mcg Inhaler 12 Gm (*Sp) INHALATION 2 puff Q12HRT MISBAH Administration Guaifenesin 1,200 mg 01/05/25 11:35 01/07/25 20:59 Guaifenesin 12 Hr 600 Mg Tabcr PO 1,200 mg Q12HR MISBAH Administration Sodium Chloride 1,000 mls @ 75 mls/hr 01/04/25 00:50 01/07/25 22:48 Normal Saline Iv IV CONT Not Given .[id number] MISBAH Ceftriaxone Sodium 1 gm/ 50 mls @ 100 mls/hr 01/04/25 21:00 01/07/25 21:30 Sodium Chloride IVPB 01/09/25 21:29 Infused Q24H MISBAH Infusion Metoprolol Succinate 25 mg 01/04/25 09:00 01/07/25 10:09 Metoprolol Succinate Ext Rel 25 Mg Tabcr PO 25 mg DAILY MISBAH Administration Oxybutynin Chloride 10 mg 01/04/25 09:00 01/05/25 09:26 Oxybutynin Chloride 5 Mg Tablet PO 10 mg On Hold: 01/06/25 07:37 DAILY MISBAH Administration Oxybutynin Chloride 5 mg 01/04/25 21:00 01/05/25 21:13 Oxybutynin Chloride 5 Mg Tablet PO 5 mg On Hold: 01/06/25 07:37 HS MISBAH Administration Perflutren Lipid Microsphere 0 ml 01/06/25 10:49 Perflutren Lipid Microspheres 1.5 Ml Vial Diluted To 10 Ml Total Volume IV PUSH 01/09/25 10:49 ONCE PRN adequate visualization Protocol Potassium Chloride 20 meq 01/07/25 09:00 01/07/25 10:10 Potassium Chloride 20 Meq Er Tablet PO Not Given DAILY MISBAH Trimethobenzamide HCl 200 mg 01/04/25 07:54 Trimethobenzamide Hcl 200 Mg/2 Ml Vial IM Q6H PRN Nausea And Vomiting Radiology Results: ITS Impressions Chest X-Ray 01/03/25 19:01 IMPRESSION: 1. Cardiomegaly, atherosclerotic aorta and aortic graft placement. 2. Significant consolidation and loss of volume due to atelectasis of left lower lobe. Possible changes of pneumonia. However, obstruction by tumor or foreign body aspiration not ruled out. Radiographic follow-up is needed and if necessary CT follow-up can be obtained. Chest/Abdomen/Pelvis CT 01/03/25 21:22 IMPRESSION: 1. Limited noncontrast CT, not optimal to evaluate neoplasms, vascular structures and solid viscera. 2. Significant consolidation and loss of volume of left lower lobe. Air bronchogram is present through the consolidation of left lower lobe. Findings are most likely due to persistent pneumonia of left lower lobe. Clinical and lab follow-up are needed along with chest x-ray follow-up to ensure complete resolution of the pneumonia. 3. Bilateral nonobstructing renal calculi. 4. Degenerative disc changes of thoracolumbar discs. Labs Labs: Laboratory Results - last 24 hr 01/08/25 01/08/25 05:09 05:10 WBC 7.5 RBC 3.76 L Hgb 11.7 L Hct 36.0 L MCV 95.7 MCH 31.1 MCHC 32.5 RDW 15.6 H Plt Count 178 MPV 12.7 H Immature Gran % (Auto) 2.7 H Neut % (Auto) 65.0 Lymph % (Auto) 17.5 L [place] % (Auto) 12.1 H Eos % (Auto) 2.0 Baso % (Auto) 0.7 Lymph # (Auto) 1.31 [place] # (Auto) 0.9 H Eos # (Auto) 0.2 Baso # (Auto) 0.1 Abs Immat Gran (auto) 0.20 H Absolute Neuts (auto) 4.9 Absolute Nucleated RBC 0.000 Band Neutrophils % Not Reportable Nucleated RBC % 0.0 Platelet Estimate Adequate Ivonne Cells 1+ Schistocytes None seen Sodium 134 L Potassium 3.6 Chloride 104 Carbon Dioxide 25 Anion Gap 5 BUN 8 D Creatinine 0.54 L Estim Creat Clear Calc Not Reportable Estimated GFR > 60 Glucose 84 Calcium 8.5 Total Bilirubin 0.7 AST 46 H ALT 29 Alkaline Phosphatase 81 Total Protein 6.4 Albumin 3.4 L Quality VTE Prophylaxis VTE prophylaxis: mechanical ordered and pharmacologic ordered
[2025-01-08] MEDS: SODIUM CHLORIDE 0.9% IV 1,000 ML 75 ML IV CONT (07:49)
[2025-01-08] MEDS: DRONEDARONE HCL 400 MG TABLET PO ×2 (07:50→17:09)
[2025-01-08] MEDS: POTASSIUM CHLORIDE 20 MEQ ER TABLET PO (08:02)
[2025-01-08] MEDS: CLOPIDOGREL BISULFATE 75 MG TABLET PO (08:02)
[2025-01-08] MEDS: guaiFENesin 12 HR 600 MG TABCR 1200 MG PO ×2 (08:02→21:04)
[2025-01-08] MEDS: METOPROLOL SUCCINATE EXT REL 25 MG TABCR PO (08:03)
[2025-01-08] MEDS: ENOXAPARIN 40 MG/0.4 ML SYRINGE SUB-Q (08:11)
[2025-01-08] MEDS: FLUTICASONE PROP 110 MCG INHALER 12 GM (*SP) 2 PUFF INHALATION (20:48)
[2025-01-08] MEDS: cefTRIAXone 1 GM in SODIUM CHLORIDE 0.9% IV 50 ML 100 ML IVPB (21:02)
[2025-01-09] VITALS (12 sets, daily range): BP systolic 131–159; BP diastolic 80–90; PULSE 74–103; RESP 16–20; TEMP 36.6–36.8; O2SAT 94–97
[2025-01-09 07:07] LABS: Hematocrit 38.2 % (37.0-47.0); Hemoglobin 12.5 g/dL (12.0-15.0); Immature Granulocyte Percent A 2.7 % (0-0.5); Lymphocytes Absolute Auto 1.41 K/mm3 (0.9-3.2); Mean Corpuscular HGB Conc 32.7 g/dl (32-36); Mean Corpuscular Hemoglobin 31.6 pg (26-34); Mean Corpuscular Volume 96.7 fl (80-100); Nucleated Red Blood Cells Absolute Auto 0.000 K/mm3 (0.0-0.012); Nucleated Red Blood Cells Perc 0.0 % (0.0-0.2); Platelet Count Result 250 k/mm3 (150-375); Red Blood Count 3.95 M/mm3 (4.2-5.4); White Blood Count 8.9 K/mm3 (4.5-10.0)
[2025-01-09 07:29] LABS: Alanine Aminotransferase 27 U/L (6-35); Albumin Level 3.5 g/dL (3.5-5.1); Alkaline Phosphatase 86 U/L (38-126); Anion Gap 5 mmol/L (4-12); Aspartate Amino Transferase 42 U/L (14-36); Bilirubin,Total 0.6 mg/dL (0.2-1.3); Blood Urea Nitrogen 6 mg/dL (7-17); Calcium 8.8 mg/dL (8.4-10.2); Carbon Dioxide 34 mmol/L (22-30); Chloride 97 mmol/L (98-107); Estimated Glomerular Filt Rate > 60; Glucose 97 mg/dL (65-110); Potassium 3.1 mmol/L (3.4-5.0); Sodium 136 mmol/L (137-145); Total Protein 6.8 g/dL (6.3-8.2)
[2025-01-09] MEDS: ENOXAPARIN 40 MG/0.4 ML SYRINGE SUB-Q (08:00)
[2025-01-09] MEDS: DRONEDARONE HCL 400 MG TABLET PO ×2 (08:00→16:45)
[2025-01-09] MEDS: CLOPIDOGREL BISULFATE 75 MG TABLET PO (08:00)
[2025-01-09] MEDS: guaiFENesin 12 HR 600 MG TABCR 1200 MG PO (08:01)
[2025-01-09] MEDS: METOPROLOL SUCCINATE EXT REL 25 MG TABCR PO (08:01)
--- NOTE | 2025-01-09 11:17 | P.PNIM_ITS ---
Subjective Date/time seen: 01/09/25 1201 Interval history: Pt sitting up in chair eating upon arrival to her room, she looks better today. Reports cessation in productive cough. Continues to have low appetite. Denies SOB, CP, but indorses intermittent L upper back pain but it is also reproducible with palpation. With hx of CAD, will order EKG to r/o ACS, pt agreeable. Review of Systems Review of Systems: All systems reviewed & are unremarkable except as noted in HPI and below Exam Narrative: Elderly Const: General: no acute distress and uncomfortable HENMT: Face/Nose/Sinus: Normal nares present Mouth: Yes moist mucous membranes Eyes: General: appearance normal, both eyes and all related structures Sclera: sclerae normal Pupils: Equal, round and reactive pupils present Neck: Neck: supple Carotids: no bruits Resp: Effort & Inspection: normal respiratory effort Auscultation: clear to auscultation bilaterally, crackles on the left in the lower lung munoz, wheezes expiratory wheezes and left lower and diminished lung sounds on the left in the lower lung munoz Cardio: Rate: regular rate Rhythm: regular rhythm and abnormal rhythm irregularly irregular Other: TELE afib 91bpm GI: Inspection: non-distended Auscultation: normal bowel sounds Back/Spine/Pelvis: Other: TTP L upper back, mild Skin: General skin exam: normal color and no rashes or lesions noted Neuro: Cranial nerves: Yes Equal, round and reactive pupils present Speech: normal speech Motor exam (neuro): 5/5 motor strength present throughout and Normal motor muscle tone present throughout Sensory Exam: normal sensation Extrem: General: normal to inspection and normal exam except as noted Psych: Mental Status: mental status grossly normal Affect: normal affect Objective Data Vital Signs Vital Signs: Vital Signs - 24 hr 01/08/25 12:00 01/08/25 14:00 01/08/25 16:00 Temperature 97.9 F Pulse Rate 98 76 84 Respiratory Rate 16 Blood Pressure 161/80 H Pulse Oximetry 97 Oxygen Delivery 01/08/25 17:09 01/08/25 19:50 01/08/25 20:00 Temperature 98.8 F Pulse Rate 84 87 Respiratory Rate 18 Blood Pressure 124/89 Pulse Oximetry 98 Oxygen Delivery Room Air 01/08/25 20:00 01/09/25 00:00 01/09/25 04:00 Temperature Pulse Rate 100 96 84 Respiratory Rate Blood Pressure Pulse Oximetry Oxygen Delivery 01/09/25 04:35 01/09/25 08:00 01/09/25 08:00 Temperature 98.3 F Pulse Rate 74 89 Respiratory Rate 20 Blood Pressure 159/86 H Pulse Oximetry 95 Oxygen Delivery Room Air 01/09/25 08:00 01/09/25 08:01 Temperature Pulse Rate 79 89 Respiratory Rate Blood Pressure Pulse Oximetry Oxygen Delivery Intake/Output Intake/Output: Intake & Output 01/06/25 01/07/25 01/08/25 01/09/25 23:59 23:59 23:59 23:59 Intake Total 2270 3258.8 2480 240 Output Total 300 Balance 2270 2958.8 2480 240 Meds/Results Medications: Active Medications Generic Name Dose Route Start Last Admin Trade Name Freq PRN Reason Stop Dose Admin Acetaminophen 650 mg 01/03/25 23:28 Acetaminophen 325 Mg Tablet PO Q4H PRN Mild Pain (1-3) or Fever Hydrocodone Bitart/Acetaminophen 1 tab 01/04/25 12:24 01/07/25 21:02 Hydrocodone/Acetaminophen (*Crx) 5-325 Mg Tablet PO 1 tab BID PRN Administration Pain Albuterol 1 puff 01/04/25 07:44 Albuterol Sulfate (*Sp) Aerosol 1 Puff INHALATION Q6H PRN Shortness Of Breath Or Wheezing Allopurinol 100 mg 01/04/25 09:00 01/09/25 08:00 Allopurinol 100 Mg Tablet PO 100 mg DAILY MISBAH Administration Benzonatate 200 mg 01/04/25 07:54 01/04/25 22:41 Benzonatate 100 Mg Capsule PO 200 mg On Hold: 01/05/25 11:35 TID PRN Administration cough Clopidogrel Bisulfate 75 mg 01/04/25 09:00 01/09/25 08:00 Clopidogrel Bisulfate 75 Mg Tablet PO 75 mg DAILY MISBAH Administration Dronedarone 400 mg 01/04/25 08:00 01/09/25 08:00 Dronedarone Hcl 400 Mg Tablet PO 400 mg BIDWM MISBAH Administration Enoxaparin Sodium 40 mg 01/05/25 09:00 01/09/25 08:00 Enoxaparin 40 Mg/0.4 Ml Syringe SUB-Q 40 mg DAILY MISBAH Administration Fluticasone Propionate 2 puff 01/08/25 21:00 01/08/25 20:48 Fluticasone Prop 110 Mcg Inhaler 12 Gm (*Sp) INHALATION 2 puff HS MISBAH Administration Guaifenesin 1,200 mg 01/05/25 11:35 01/09/25 08:01 Guaifenesin 12 Hr 600 Mg Tabcr PO 1,200 mg Q12HR MISBAH Administration Ceftriaxone Sodium 1 gm/ 50 mls @ 100 mls/hr 01/04/25 21:00 01/08/25 21:02 Sodium Chloride IVPB 01/09/25 21:29 100 mls/hr Q24H MISBAH Administration Metoprolol Succinate 25 mg 01/04/25 09:00 01/09/25 08:01 Metoprolol Succinate Ext Rel 25 Mg Tabcr PO 25 mg DAILY MISBAH Administration Oxybutynin Chloride 10 mg 01/04/25 09:00 01/09/25 08:01 Oxybutynin Chloride 5 Mg Tablet PO 10 mg DAILY MISBAH Administration Oxybutynin Chloride 5 mg 01/04/25 21:00 01/08/25 21:04 Oxybutynin Chloride 5 Mg Tablet PO 5 mg HS MISBAH Administration Trimethobenzamide HCl 200 mg 01/04/25 07:54 Trimethobenzamide Hcl 200 Mg/2 Ml Vial IM Q6H PRN Nausea And Vomiting Radiology Results: ITS Impressions Chest X-Ray 01/03/25 19:01 IMPRESSION: 1. Cardiomegaly, atherosclerotic aorta and aortic graft placement. 2. Significant consolidation and loss of volume due to atelectasis of left lower lobe. Possible changes of pneumonia. However, obstruction by tumor or foreign body aspiration not ruled out. Radiographic follow-up is needed and if necessary CT follow-up can be obtained. Chest/Abdomen/Pelvis CT 01/03/25 21:22 IMPRESSION: 1. Limited noncontrast CT, not optimal to evaluate neoplasms, vascular structures and solid viscera. 2. Significant consolidation and loss of volume of left lower lobe. Air bronchogram is present through the consolidation of left lower lobe. Findings are most likely due to persistent pneumonia of left lower lobe. Clinical and lab follow-up are needed along with chest x-ray follow-up to ensure complete resolution of the pneumonia. 3. Bilateral nonobstructing renal calculi. 4. Degenerative disc changes of thoracolumbar discs. Labs Labs: Laboratory Results - last 24 hr 01/09/25 07:02 WBC 8.9 RBC 3.95 L Hgb 12.5 Hct 38.2 MCV 96.7 MCH 31.6 MCHC 32.7 RDW 15.5 H Plt Count 250 MPV 11.5 H Immature Gran % (Auto) 2.7 H Neut % (Auto) 69.7 Lymph % (Auto) 15.8 L [place] % (Auto) 10.1 H Eos % (Auto) 1.3 Baso % (Auto) 0.4 Lymph # (Auto) 1.41 [place] # (Auto) 0.9 H Eos # (Auto) 0.1 Baso # (Auto) 0.0 Abs Immat Gran (auto) 0.24 H Absolute Neuts (auto) 6.2 Absolute Nucleated RBC 0.000 Nucleated RBC % 0.0 Sodium 136 L Potassium 3.1 L Chloride 97 L Carbon Dioxide 34 H Anion Gap 5 BUN 6 L Creatinine 0.63 L Estim Creat Clear Calc Not Reportable Estimated GFR > 60 Glucose 97 Calcium 8.8 Total Bilirubin 0.6 AST 42 H ALT 27 Alkaline Phosphatase 86 Total Protein 6.8 Albumin 3.5 Assessment and Plan Assessment and Plan (1) Community acquired pneumonia: Code(s): J18.9 - Pneumonia, unspecified organism Status: Acute Assessment and Plan: Per CXR & CT WBC normalized Abx started in ED: Azithro & Rocephin (last day of azithro 01/07) Sputum culture +manuela only, likely contaminate Pt reports a cessation in sputum production / expelling when coughing d/c guaifenesin today, resume [facility] [place] Pt with intermittent L upper back pain but it is also reproducible with palpation, maybe due to coughing/PNA? But with hx of CAD, will order EKG to r/o ACS. (2) Sepsis: Code(s): A41.9 - Sepsis, unspecified organism Status: Acute Assessment and Plan: Sepsis resolved WBC now normalized VSS BC #1 final with strep pneumoniae, probable source of PNA --Continue Rocephin. MRSA neg. --Pending repeat BC. --Echo negative for endocarditis UC with mixed urogenital radames, WDL (3) Dehydration: Code(s): E86.0 - Dehydration Status: Acute Assessment and Plan: IVF bolus initiated in ED -Pt appetitie fair today but reporting is still eating and drinking appr opriately, D/C IVF (4) Hypokalemia: Code(s): E87.6 - Hypokalemia Status: Acute Assessment and Plan: 3.1 in the ED, repleted there 3.7 with recheck 01/04, continue with daily labs 3.3 with recheck 01/05. will replete via oral again. pt with decreased appetite. continue daily labs 3.3 with recheck 01/06, pt refused liquid K last night. Liquid ordered due to interaction with oxybutynin. -Held oxybutynin today and ordered K 40meq tab instead one time dose & 20meq daily starting tomorrow until appetite back to normal, encouraged oral intake. Continue daily labs. 3.5 01/07, continue with daily suppl of 20meq x1 more day due to increase of appetite, consider d/c K suppl 01/09 if labs continue to normalize 3.6 today, D/C suppl due to uptrending values and normalized appetite. 3.1 today, appetite still low, will continue with K suppl, hold oxybutynin while on. Likely D/C home with suppl, pt reports she has a hx of Low K -Continues to deny N/V/D, CP, SOB, and palpitations (5) Renal calculi: Code(s): N20.0 - Calculus of kidney Status: Acute Assessment and Plan: Per CT, chronic, states that she has had a total of 8 in the past and she can tell when present -Denies CVA pain or urinary sx (6) Atrial fibrillation: Code(s): I48.91 - Unspecified atrial fibrillation Status: Acute Assessment and Plan: Tele, EKG in ED 480 QTc -Denies CP, SOB, palpitations -Continue home meds: Plavix, dronedarone Plan Continue with course of abx IV abx for PNA/bacteremia, pending repeat BC K suppl today started again today with likely D/C on, hold oxybutynin Pt refusing heart healthy diet, understands risks of regular diet. Quality VTE Prophylaxis VTE prophylaxis: mechanical ordered and pharmacologic ordered
--- NOTE | 2025-01-09 12:16 | ECG_ITS ---
Test Date: 2025-01-09 14:54:40 Measurements Intervals [place] Rate: 89 P: 0 OR: 0 QRS: 21 QRSD: 112 T: 28 QT: 396 QTc: 484 Interpretive Statements ATRIAL FIBRILLATION INCOMPLETE LEFT BUNDLE BRANCH BLOCK BASELINE ARTIFACT- I, AVR, AVL, AVF, V1-V6 ABNORMAL ECG Compared to ECG 01/03/2025 21:40:14 HEART RATE HAS DECREASED INCOMPLETE LEFT BUNDLE BRANCH BLOCK NOW PRESENT Electronically Signed On 01-09-2025 18:18:37 [employer] by Jovanny De La Fuente D.O.
[2025-01-09] MEDS: POTASSIUM CHLORIDE 20 MEQ ER TABLET 40 MEQ PO (12:39)
[2025-01-09] MEDS: cefTRIAXone 2 GM in SODIUM CHLORIDE 0.9% IV 100 ML 200 ML IVPB (14:49)
[2025-01-09] MEDS: BENZONATATE 100 MG CAPSULE 200 MG PO (19:24)
--- NOTE | 2025-01-09 23:29 | PCRCNOTE ---
Pt states she does not take that specific mdi at home and she does not like the way it makes her feel. Patient does not want to take it.
[2025-01-10] VITALS (13 sets, daily range): BP systolic 122–150; BP diastolic 86–90; PULSE 67–102; RESP 18–20; TEMP 36.4–37.1; O2SAT 92–96
[2025-01-10 08:20] LABS: Hematocrit 34.7 % (37.0-47.0); Hemoglobin 11.5 g/dL (12.0-15.0); Immature Granulocyte Percent A 1.4 % (0-0.5); Lymphocytes Absolute Auto 1.32 K/mm3 (0.9-3.2); Mean Corpuscular HGB Conc 33.1 g/dl (32-36); Mean Corpuscular Hemoglobin 31.9 pg (26-34); Mean Corpuscular Volume 96.1 fl (80-100); Nucleated Red Blood Cells Absolute Auto 0.000 K/mm3 (0.0-0.012); Nucleated Red Blood Cells Perc 0.0 % (0.0-0.2); Platelet Count Result 255 k/mm3 (150-375); Red Blood Count 3.61 M/mm3 (4.2-5.4); White Blood Count 10.4 K/mm3 (4.5-10.0)
[2025-01-10] MEDS: CLOPIDOGREL BISULFATE 75 MG TABLET PO (08:26)
[2025-01-10] MEDS: BENZONATATE 100 MG CAPSULE 200 MG PO ×2 (08:26→17:28)
[2025-01-10] MEDS: HYDROcodone/acetaminophen (*CRX) 5-325 MG TABLET 1 TAB PO ×2 (08:27→19:06)
[2025-01-10] MEDS: POTASSIUM CHLORIDE 20 MEQ ER TABLET 40 MEQ PO (08:27)
[2025-01-10] MEDS: METOPROLOL SUCCINATE EXT REL 25 MG TABCR PO (08:28)
[2025-01-10] MEDS: DRONEDARONE HCL 400 MG TABLET PO ×2 (08:29→16:15)
[2025-01-10] MEDS: ENOXAPARIN 40 MG/0.4 ML SYRINGE SUB-Q (08:33)
[2025-01-10 08:44] LABS: Alanine Aminotransferase 21 U/L (6-35); Albumin Level 3.3 g/dL (3.5-5.1); Alkaline Phosphatase 93 U/L (38-126); Anion Gap 3 mmol/L (4-12); Aspartate Amino Transferase 40 U/L (14-36); Bilirubin,Total 0.5 mg/dL (0.2-1.3); Blood Urea Nitrogen 8 mg/dL (7-17); Calcium 8.5 mg/dL (8.4-10.2); Carbon Dioxide 34 mmol/L (22-30); Chloride 98 mmol/L (98-107); Estimated Glomerular Filt Rate > 60; Glucose 96 mg/dL (65-110); Potassium 3.3 mmol/L (3.4-5.0); Sodium 135 mmol/L (137-145); Total Protein 6.5 g/dL (6.3-8.2)
--- NOTE | 2025-01-10 12:01 | PCNWS ---
Weekly nutritional screen. Patient is tolerating current diet with adequate intake. No weight loss reported. No nutritional needs at this time.
[2025-01-10] MEDS: cefTRIAXone 2 GM in SODIUM CHLORIDE 0.9% IV 100 ML 200 ML IVPB (12:28)
[2025-01-10] MEDS: ACETAMINOPHEN 325 MG TABLET 650 MG PO (12:32)
--- NOTE | 2025-01-10 14:12 | PM.IMPN2 ---
Assessment and Plan Assessment and Plan (1) Community acquired pneumonia: Code(s): J18.9 - Pneumonia, unspecified organism Status: Acute Assessment and Plan: Per CXR & CT WBC normalized Abx started in ED: Azithro & Rocephin (last day of azithro 01/07, last day of Rocephin 01/10) Sputum culture +manuela only, likely contaminate Pt cough doing better on Tessalon Perles, will discharge with rx No more back pain today (2) Sepsis: Code(s): A41.9 - Sepsis, unspecified organism Status: Acute Assessment and Plan: Sepsis resolved WBC now normalized VSS UC with mixed urogenital radames, WDL Bacteremia BC #1 final with strep pneumoniae, probable source of PNA --Continue Rocephin. MRSA neg. --Pending repeat BC. --Echo negative for endocarditis (3) Dehydration: Code(s): E86.0 - Dehydration Status: Acute Assessment and Plan: IVF bolus initiated in ED -Pt appetitie fair today but reporting is still eating and drinking appropriately, D/C IVF (4) Hypokalemia: Code(s): E87.6 - Hypokalemia Status: Acute Assessment and Plan: 3.1 in the ED, repleted there 3.7 with recheck 01/04, continue with daily labs 3.3 with recheck 01/05. will replete via oral again. pt with decreased appetite. continue daily labs 3.3 with recheck 01/06, pt refused liquid K last night. Liquid ordered due to interaction with oxybutynin. -Held oxybutynin today and ordered K 40meq tab instead one time dose & 20meq daily starting tomorrow until appetite back to normal, encouraged oral intake. Continue daily labs. 3.5 01/07, continue with daily suppl of 20meq x1 more day due to increase of appetite, consider d/c K suppl 01/09 if labs continue to normalize 3.6 today, D/C suppl due to uptrending values and normalized appetite. 3.1 today, appetite still low, will continue with K suppl, hold oxybutynin while on. Likely D/C home with suppl, pt reports she has a hx of Low K -Continues to deny N/V/D, CP, SOB, and palpitations 3.3 today, continue with supp until appetite improved. May need to rx K suppl at discharge, continue to monitor. (5) Renal calculi: Code(s): N20.0 - Calculus of kidney Status: Acute Assessment and Plan: Per CT, chronic, states that she has had a total of 8 in the past and she can tell when present -Denies CVA pain or urinary sx (6) Atrial fibrillation: Code(s): I48.91 - Unspecified atrial fibrillation Status: Acute Assessment and Plan: Tele, EKG in ED 480 QTc -Denies CP, SOB, palpitations -Continue home meds: Plavix, dronedarone Plan Finished abx course today, pending repeat BC K suppl today started today with likely D/C on, hold oxybutynin due to interaction (takes for incontinence) Pt refusing heart healthy diet, understands risks of regular diet. Medical Record Review I have reviewed the following patient records and this information was taken into consideration when formulating the assessment and plan.: previous labs Time Spent With Patient Time with patient: 25 - 35 minutes Subjective Date/time seen: 01/10/25 1323 Interval history: Pt sitting up in chair resting upon arrival to her room, she looks better today. Continues to report cough getting better jose raul with tessalon perles. Continues to have mildly low appetite, she states that she does not eat much at home anyway. Denies SOB, CP, back pain, or any other sx. Review of Systems Review of Systems: All systems reviewed & are unremarkable except as noted in HPI and below Exam Narrative: Elderly Const: General: no acute distress and uncomfortable HENMT: Face/Nose/Sinus: Normal nares present Mouth: Yes moist mucous membranes Other: tacky mucous membranes Eyes: General: appearance normal, both eyes and all related structures Sclera: sclerae normal Pupils: Equal, round and reactive pupils present Neck: Neck: supple Carotids: no bruits Resp: Effort & Inspection: normal respiratory effort Auscultation: clear to auscultation bilaterally, crackles on the left in the lower lung munoz, wheezes expiratory wheezes and left lower and diminished lung sounds on the left in the lower lung munoz Cardio: Rate: regular rate Rhythm: regular rhythm and abnormal rhythm irregularly irregular Other: TELE afib 91bpm GI: Inspection: non-distended Auscultation: normal bowel sounds Back/Spine/Pelvis: Other: TTP L upper back, mild Skin: General skin exam: normal color and no rashes or lesions noted Neuro: Cranial nerves: Yes Equal, round and reactive pupils present Speech: normal speech Motor exam (neuro): 5/5 motor strength present throughout and Normal motor muscle tone present throughout Sensory Exam: normal sensation Extrem: General: normal to inspection and normal exam except as noted Psych: Mental Status: mental status grossly normal Affect: normal affect Objective Data Vital Signs Vital Signs: Vital Signs - 24 hr 01/09/25 16:00 01/09/25 16:45 01/09/25 19:30 Temperature Pulse Rate 93 103 H 92 Respiratory Rate Blood Pressure Pulse Oximetry Oxygen Delivery Fraction of Inspired Oxygen 01/09/25 19:44 01/09/25 20:35 01/10/25 00:00 Temperature 97.8 F Pulse Rate 87 71 Respiratory Rate 20 Blood Pressure 131/90 Pulse Oximetry 95 94 Oxygen Delivery Room Air Fraction of Inspired Oxygen 21 01/10/25 03:47 01/10/25 04:00 01/10/25 08:00 Temperature 98.5 F Pulse Rate 82 89 Respiratory Rate 18 Blood Pressure 146/87 H Pulse Oximetry 96 Oxygen Delivery Room Air Fraction of Inspired Oxygen 01/10/25 08:00 01/10/25 08:28 01/10/25 08:29 Temperature Pulse Rate 102 H 94 94 Respiratory Rate Blood Pressure Pulse Oximetry Oxygen Delivery Fraction of Inspired Oxygen Intake/Output Intake/Output: Intake & Output 01/07/25 01/08/25 01/09/25 01/10/25 23:59 23:59 23:59 23:59 Intake Total 3258.8 2480 1820 410 Output Total 300 Balance 2958.8 2480 1820 410 Meds/Results Medications: Active Medications Generic Name Dose Route Start Last Admin Trade Name Freq PRN Reason Stop Dose Admin Acetaminophen 650 mg 01/03/25 23:28 01/10/25 12:32 Acetaminophen 325 Mg Tablet PO 650 mg Q4H PRN Administration Mild Pain (1-3) or Fever Hydrocodone Bitart/Acetaminophen 1 tab 01/04/25 12:24 01/10/25 08:27 Hydrocodone/Acetaminophen (*Crx) 5-325 Mg Tablet PO 1 tab BID PRN Administration Pain Albuterol 1 puff 01/04/25 07:44 Albuterol Sulfate (*Sp) Aerosol 1 Puff INHALATION Q6H PRN Shortness Of Breath Or Wheezing Allopurinol 100 mg 01/04/25 09:00 01/10/25 08:29 Allopurinol 100 Mg Tablet PO 100 mg DAILY MISBAH Administration Benzonatate 200 mg 01/04/25 07:54 01/10/25 08:26 Benzonatate 100 Mg Capsule PO 200 mg TID PRN Administration cough Clopidogrel Bisulfate 75 mg 01/04/25 09:00 01/10/25 08:26 Clopidogrel Bisulfate 75 Mg Tablet PO 75 mg DAILY MISBAH Administration Dronedarone 400 mg 01/04/25 08:00 01/10/25 08:29 Dronedarone Hcl 400 Mg Tablet PO 400 mg BIDWM MISBAH Administration Enoxaparin Sodium 40 mg 01/05/25 09:00 01/10/25 08:33 Enoxaparin 40 Mg/0.4 Ml Syringe SUB-Q 40 mg DAILY MISBAH Administration Fluticasone Propionate 2 puff 01/08/25 21:00 01/09/25 21:07 Fluticasone Prop 110 Mcg Inhaler 12 Gm (*Sp) INHALATION Not Given [facility] Metoprolol Succinate 25 mg 01/04/25 09:00 01/10/25 08:28 Metoprolol Succinate Ext Rel 25 Mg Tabcr PO 25 mg DAILY MISBAH Administration Oxybutynin Chloride 10 mg 01/04/25 09:00 01/09/25 08:01 Oxybutynin Chloride 5 Mg Tablet PO 10 mg On Hold: 01/09/25 12:18 DAILY MISBAH Administration Oxybutynin Chloride 5 mg 01/04/25 21:00 01/08/25 21:04 Oxybutynin Chloride 5 Mg Tablet PO 5 mg On Hold: 01/09/25 12:18 HS [facility]1983 Administration Potassium Chloride 40 meq 01/09/25 12:20 01/10/25 08:27 Potassium Chloride 20 Meq Er Tablet PO 40 meq DAILY MISBAH Administration Trimethobenzamide HCl 200 mg 01/04/25 07:54 Trimethobenzamide Hcl 200 Mg/2 Ml Vial IM Q6H PRN Nausea And Vomiting Radiology Results: ITS Impressions Chest X-Ray 01/03/25 19:01 IMPRESSION: 1. Cardiomegaly, atherosclerotic aorta and aortic graft placement. 2. Significant consolidation and loss of volume due to atelectasis of left lower lobe. Possible changes of pneumonia. However, obstruction by tumor or foreign body aspiration not ruled out. Radiographic follow-up is needed and if necessary CT follow-up can be obtained. Chest/Abdomen/Pelvis CT 01/03/25 21:22 IMPRESSION: 1. Limited noncontrast CT, not optimal to evaluate neoplasms, vascular structures and solid viscera. 2. Significant consolidation and loss of volume of left lower lobe. Air bronchogram is present through the consolidation of left lower lobe. Findings are most likely due to persistent pneumonia of left lower lobe. Clinical and lab follow-up are needed along with chest x-ray follow-up to ensure complete resolution of the pneumonia. 3. Bilateral nonobstructing renal calculi. 4. Degenerative disc changes of thoracolumbar discs. Labs Labs: Laboratory Results - last 24 hr 01/10/25 08:14 WBC 10.4 H RBC 3.61 L Hgb 11.5 L Hct 34.7 L MCV 96.1 MCH 31.9 MCHC 33.1 RDW 15.6 H Plt Count 255 MPV 11.2 H Immature Gran % (Auto) 1.4 H Neut % (Auto) 77.1 H Lymph % (Auto) 12.8 L [place] % (Auto) 7.3 Eos % (Auto) 1.1 Baso % (Auto) 0.3 Lymph # (Auto) 1.32 [place] # (Auto) 0.8 H Eos # (Auto) 0.1 Baso # (Auto) 0.0 Abs Immat Gran (auto) 0.15 H Absolute Neuts (auto) 8.0 H Absolute Nucleated RBC 0.000 Nucleated RBC % 0.0 Sodium 135 L Potassium 3.3 L Chloride 98 Carbon Dioxide 34 H Anion Gap 3 L BUN 8 Creatinine 0.62 L Estim Creat Clear Calc Not Reportable Estimated GFR > 60 Glucose 96 Calcium 8.5 Total Bilirubin 0.5 AST 40 H ALT 21 Alkaline Phosphatase 93 Total Protein 6.5 Albumin 3.3 L Quality VTE Prophylaxis VTE prophylaxis: mechanical ordered and pharmacologic ordered
[2025-01-11] VITALS: PULSE 87
[2025-01-11] MEDS: HYDROcodone/acetaminophen (*CRX) 5-325 MG TABLET 1 TAB PO ×2 (01:56→12:23)
[2025-01-11] MEDS: BENZONATATE 100 MG CAPSULE 200 MG PO ×2 (01:56→08:25)
[2025-01-11 03:22] VITALS: BP 150/83; PULSE 90; RESP 20; TEMP 36.4; O2SAT 95
[2025-01-11 04:00] VITALS: PULSE 91
[2025-01-11 08:00] VITALS: PULSE 99
[2025-01-11 08:13] LABS: Hematocrit 36.4 % (37.0-47.0); Hemoglobin 11.9 g/dL (12.0-15.0); Immature Granulocyte Percent A 1.0 % (0-0.5); Lymphocytes Absolute Auto 1.43 K/mm3 (0.9-3.2); Mean Corpuscular HGB Conc 32.7 g/dl (32-36); Mean Corpuscular Hemoglobin 31.6 pg (26-34); Mean Corpuscular Volume 96.8 fl (80-100); Nucleated Red Blood Cells Absolute Auto 0.000 K/mm3 (0.0-0.012); Nucleated Red Blood Cells Perc 0.0 % (0.0-0.2); Platelet Count Result 288 k/mm3 (150-375); Red Blood Count 3.76 M/mm3 (4.2-5.4); White Blood Count 13.0 K/mm3 (4.5-10.0)
[2025-01-11 08:25] VITALS: PULSE 89
[2025-01-11] MEDS: CLOPIDOGREL BISULFATE 75 MG TABLET PO (08:25)
[2025-01-11] MEDS: DRONEDARONE HCL 400 MG TABLET PO (08:25)
[2025-01-11] MEDS: ENOXAPARIN 40 MG/0.4 ML SYRINGE SUB-Q (08:25)
[2025-01-11] MEDS: METOPROLOL SUCCINATE EXT REL 25 MG TABCR PO (08:25)
[2025-01-11 08:42] LABS: Alanine Aminotransferase 21 U/L (6-35); Albumin Level 3.5 g/dL (3.5-5.1); Alkaline Phosphatase 92 U/L (38-126); Anion Gap 5 mmol/L (4-12); Aspartate Amino Transferase 44 U/L (14-36); Bilirubin,Total 0.5 mg/dL (0.2-1.3); Blood Urea Nitrogen 11 mg/dL (7-17); Calcium 8.8 mg/dL (8.4-10.2); Carbon Dioxide 32 mmol/L (22-30); Chloride 98 mmol/L (98-107); Estimated Glomerular Filt Rate > 60; Glucose 96 mg/dL (65-110); Potassium 3.8 mmol/L (3.4-5.0); Sodium 135 mmol/L (137-145); Total Protein 6.7 g/dL (6.3-8.2)
[2025-01-11] MEDS: DOXYCYCLINE HYCLATE 100 MG TABLET PO (12:23)
--- NOTE | 2025-01-11 12:40 | PM.DS ---
DS: Admitting Diagnosis Discharge Date 01/11/2025 Admitting Diagnosis Cough, N/V, weakness, fever DS: Discharge Diagnosis Discharge Diagnosis (1) Community acquired pneumonia: Code(s): J18.9 - Pneumonia, unspecified organism Status: Acute Assessment and Plan: Per CXR & CT WBC normalized Abx started in ED: Azithro & Rocephin (last day of azithro 01/07, last day of Rocephin 01/10) dc with doxycycline for 7 days larry and jenaro polo (2) Sepsis: Code(s): A41.9 - Sepsis, unspecified organism Status: Acute Assessment and Plan: Sepsis resolved ok to dc rpt bc is pending first bc shows strep pneumoniae d with doxycy pt has pcn allergy sputum grew manuela dc with 3 days of oral diflucan (3) Dehydration: Code(s): E86.0 - Dehydration Status: Acute Assessment and Plan: Advised plenty of fluids Pt received iv fluids (4) Hypokalemia: Code(s): E87.6 - Hypokalemia Status: Acute Assessment and Plan: Potassium is stable (5) Renal calculi: Code(s): N20.0 - Calculus of kidney Status: Acute Assessment and Plan: Per CT, chronic, states that she has had a total of 8 in the past and she can tell when present -Denies CVA pain or urinary sx (6) Atrial fibrillation: Code(s): I48.91 - Unspecified atrial fibrillation Status: Acute Assessment and Plan: Tele, EKG in ED 480 QTc -Denies CP, SOB, palpitations -Continue home meds: Plavix, dronedarone DS: Summary Hospital Course Hospital Course: Pt lying in bed with S.O. at the bedside. Pt c/o continued lower back pain (chronic), weakness, and brown tinged productive cough that started Thursday. Pt with recent 11 hour car ride, she [place]. Pt states that she feels better than she did yesterday but would like to start her home pain meds for her back pain (has gotten multiple injections to the L-spine, last being in 10/2024). Pt admitted for CAP pt ok to dc with her family with oral abx and cough syrup. Pt treated with iv abx for 7 days in hospital shows strep pneumonie rpt BC still pending ok to dc with oral abx. Status at Discharge Cognitive/behavioral status at discharge: stable Time Spent with Patient Time attestation: Total time spent providing and/or coordinating discharge services:45 minutes Exam Narrative: Elderly Const: General: no acute distress HENMT: Face/Nose/Sinus: Normal nares present Mouth: Yes moist mucous membranes Other: tacky mucous membranes Eyes: General: appearance normal, both eyes and all related structures Sclera: sclerae normal Pupils: Equal, round and reactive pupils present Neck: Neck: supple Carotids: no bruits Resp: Effort & Inspection: normal respiratory effort Auscultation: clear to auscultation bilaterally and diminished lung sounds on the left in the lower lung munoz Cardio: Rate: regular rate Rhythm: regular rhythm and abnormal rhythm irregularly irregular Other: TELE afib 91bpm GI: Inspection: non-distended Auscultation: normal bowel sounds Back/Spine/Pelvis: Other: TTP L upper back, mild Skin: General skin exam: normal color and no rashes or lesions noted Neuro: Cranial nerves: Yes Equal, round and reactive pupils present Speech: normal speech Motor exam (neuro): 5/5 motor strength present throughout and Normal motor muscle tone present throughout Sensory Exam: normal sensation Extrem: General: normal to inspection and normal exam except as noted Psych: Mental Status: mental status grossly normal Affect: normal affect DS: Data Data Completed and Pending Labs on day of discharge: Labs from last 24 hours 01/11/25 08:03 WBC 13.0 H RBC 3.76 L Hgb 11.9 L Hct 36.4 L MCV 96.8 MCH 31.6 MCHC 32.7 RDW 16.0 H Plt Count 288 MPV 11.4 H Immature Gran % (Auto) 1.0 H Neut % (Auto) 80.6 H Lymph % (Auto) 11.0 L Walsh % (Auto) 6.4 Eos % (Auto) 0.8 Baso % (Auto) 0.2 Lymph # (Auto) 1.43 Walsh # (Auto) 0.8 H Eos # (Auto) 0.1 Baso # (Auto) 0.0 Abs Immat Gran (auto) 0.13 H Absolute Neuts (auto) 10.5 H Absolute Nucleated RBC 0.000 Nucleated RBC % 0.0 Sodium 135 L Potassium 3.8 Chloride 98 Carbon Dioxide 32 H Anion Gap 5 BUN 11 Creatinine 0.60 L Estim Creat Clear Calc Not Reportable Estimated GFR > 60 Glucose 96 Calcium 8.8 Total Bilirubin 0.5 AST 44 H ALT 21 Alkaline Phosphatase 92 Total Protein 6.7 Albumin 3.5 Preliminary micro results at discharge 01/06/25 11:13 Blood Culture - Preliminary Blood 01/06/25 11:16 Blood Culture - Preliminary Blood Discharge Plan Discharge Attending physician on discharge: Zo Esposito Consulting providers: Kenzie Shetty Discharging Clinician: Zo Esposito Anticipated Discharge Date/Time: 01/11/25 12:37 Patient Disposition: Home Activity: as tolerated Diet: heart healthy Discharge Instructions: 1. Be careful driving home. Please follow-up with your primary care provider when home and let them know that you were in the hospital for pneumonia and bacteremia. Rest up at home. Continue to check your blood pressure and blood sugar at home if applicable. Keep your scheduled appts with your primary care provider and any specialist that you may see. Return to the emergency department if you develop sudden shortness of breath, chest pain, a fever of greater than 101.5, or nausea, vomiting, abd pain, or diarrhea that does not go away. Follow-up with your primary care provider within 1-2 weeks, they will want to be updated on your inpatient stay in the hospital. Thank you for [facility] for your healthcare needs. Patient Instructions: Antibiotic Form, Clopidogrel (By mouth), Community Acquired Pneumonia (GEN), Bacteremia (GEN) Patient Language: Nicaraguan Stand Alone Forms: General Discharge Information Follow-up/Referrals: Alexandra,Memo Hurtado [Other] - 2 Weeks Problems: Community acquired pneumonia Discharge Medications: New acetaminophen 325 mg Tablet 650 mg PO Q6-12H PRN (Reason: Mild Pain (1-3) Or Fever) Qty: 30 0RF doxycycline hyclate 100 mg Tablet 100 mg PO Q12HR Qty: 14 0RF dextromethorphan-guaifenesin 10-100 mg/5 mL Syrup 10 ml PO Q6H PRN (Reason: Cough) Qty: 60 0RF fluconazole 150 mg tablet 150 mg PO DAILY Qty: 3 0RF Continued benzonatate 200 mg capsule 200 mg PO TID PRN (Reason: cough) hydrocodone-acetaminophen 5-325 mg tablet 1 tablet PO BID PRN (Reason: pain) clopidogrel 75 mg tablet 75 mg PO DAILY allopurinol 100 mg tablet 100 mg PO DAILY metoprolol succinate 25 mg tablet extended release 24 hr 25 mg PO DAILY albuterol sulfate 90 mcg/actuation HFA aerosol inhaler 1 puff INHALATION Q6H PRN (Reason: shortness of breath or wheezing) oxybutynin chloride 5 mg tablet 10 mg PO DAILY Multaq 400 mg tablet 400 mg PO BID fluticasone furoate [Arnuity Ellipta] 100 mcg/actuation blister with device 1 inh INHALATION Q24H oxybutynin chloride 5 mg tablet 5 mg PO HS meloxicam 7.5 mg tablet 7.5 mg PO DAILY PRN (Reason: Pain unrelieved by hydrocodone ) Date of admission: 01/04/25 07:26 Primary Care Provider: Alexandra,Memo Hurtado Admitting Provider: Shaye Boucher Attending physician on admission: Shaye Boucher Condition: Stable
== END 2025-01-11 14:25 | disposition home or self-care (01) | DRG 871 ==
LOC: ANHED 21:15 → ANH2MED 23:55
PROVIDERS: Physician Assistant; Admitting Provider Internal Medicine; Emergency Provider Student in an Organized Health Care Education/Training Program; Visit Provider Family Medicine
DX: A40.3 Sepsis due to Streptococcus pneumoniae (principal); J13 Pneumonia due to Streptococcus pneumoniae; E86.0 Dehydration; E87.6 Hypokalemia; G89.29 Other chronic pain; I48.91 Unspecified atrial fibrillation; I10 Essential (primary) hypertension; M54.9 Dorsalgia, unspecified; N20.0 Calculus of kidney; Z88.0 Allergy status to penicillin; Z20.822 Contact with and (suspected) exposure to COVID-19; Z95.2 Presence of prosthetic heart valve; Z79.02 Long term (current) use of antithrombotics/antiplatelets
CPT/HCPCS: 36415; 71046; 71250; 74176; 80053; 81001; 83605; 83690; 83735; 85025; 85027; 85055; 87040; 87070; 87086; 87186; 87205; 87637; 87641; 93005; 93306; 94640; 96365; 96367; 96375; 99285; A9270; G0378; J0456; J0696; J1650; J7030; J7050; J7120